=== PATIENT | male | born 1940 | race Caucasian/White ===

== ENCOUNTER → 2020-02-05 12:39 | Outpatient (BNVA) | payer MEDICARE, SELFPAY | PROVIDERS: PCP Internal Medicine; Referring Provider Internal Medicine; Visit Provider Nurse Practitioner Gerontology | DX: E11.42 Type 2 diabetes mellitus with diabetic polyneuropathy (principal); Z79.84 Long term (current) use of oral hypoglycemic drugs; I10 Essential (primary) hypertension; E78.5 Hyperlipidemia, unspecified | CPT/HCPCS: 99213; Q3014 ==

== ENCOUNTER 2020-02-26 10:29 | Outpatient (REF) | payer MEDICARE, SELFPAY ==
[2020-02-26 14:29] LABS: Alanine Aminotransferase 22 U/L (0-40); Albumin Level 4.4 g/dL (3.5-5.0); Alkaline Phosphatase 54 U/L (39-117); Anion Gap 14 (12-20); Aspartate Amino Transferase 17 U/L (5-37); Bilirubin Total 0.4 mg/dL (0.0-1.0); Blood Urea Nitrogen 16 mg/dL (9-16); Calcium 9.3 mg/dL (8.4-10.2); Carbon Dioxide 29 mmol/L (22-29); Chloride 97 mmol/L (96-108); Cholesterol 153 mg/dL; Estimated Glomerular Filt Rate > 60; Glucose Fasting 250 mg/dL (60-99); HDL Cholesterol 45 mg/dL; LDL Cholesterol Calculated 73 mg/dl; Potassium 4.7 mmol/l (3.3-5.1); Sodium 135 mmol/L (135-145); Total Protein 7.1 g/dL (6.5-8.0); Triglycerides 176 mg/dL
[2020-02-27 08:31] LABS: LDL Cholesterol Direct 85 mg/dL (<100)
== END 2020-02-26 10:30 | disposition home or self-care (01) ==
LOC: HO.HMGCLDS 10:29
PROVIDERS: PCP Internal Medicine; Visit Provider Nurse Practitioner Gerontology
DX: E11.42 Type 2 diabetes mellitus with diabetic polyneuropathy (principal)
CPT/HCPCS: 80053; 80061; 83721

== ENCOUNTER → 2020-03-08 12:59 | Outpatient (BNVA) | payer MEDICARE, OTHER, SELFPAY | PROVIDERS: PCP Internal Medicine; Visit Provider Nurse Practitioner Gerontology | DX: E11.42 Type 2 diabetes mellitus with diabetic polyneuropathy (principal); I10 Essential (primary) hypertension; E78.5 Hyperlipidemia, unspecified; Z79.899 Other long term (current) drug therapy | CPT/HCPCS: Q3014 ==

== ENCOUNTER 2020-03-25 13:28 | Outpatient (REF) | payer MEDICARE, SELFPAY ==
[2020-03-26 04:09] LABS: Estimated Average Glucose 192 mg/dL; Hemoglobin A1c % 8.3 %
== END 2020-03-25 13:29 | disposition home or self-care (01) ==
LOC: HO.HMGCLDS 13:28
PROVIDERS: PCP Internal Medicine; Visit Provider Nurse Practitioner Gerontology
DX: E11.42 Type 2 diabetes mellitus with diabetic polyneuropathy (principal)
CPT/HCPCS: 83036

== ENCOUNTER → 2020-04-19 09:24 | Outpatient (BNVA) | payer MEDICARE, OTHER, SELFPAY | PROVIDERS: PCP Internal Medicine; Visit Provider Nurse Practitioner Gerontology | DX: Z13.89 Encounter for screening for other disorder (principal) | CPT/HCPCS: Q3014 ==

== ENCOUNTER → 2020-07-19 09:10 | Outpatient (BNVA) | payer MEDICARE, SELFPAY | PROVIDERS: PCP Internal Medicine; Visit Provider Nurse Practitioner Gerontology | DX: Z13.89 Encounter for screening for other disorder (principal) | CPT/HCPCS: Q3014 ==

== ENCOUNTER → 2020-11-12 10:06 | Outpatient (BNVA) | payer MEDICARE, SELFPAY | PROVIDERS: PCP Internal Medicine; Visit Provider Nurse Practitioner Gerontology | DX: E11.42 Type 2 diabetes mellitus with diabetic polyneuropathy (principal); I10 Essential (primary) hypertension; E78.5 Hyperlipidemia, unspecified | CPT/HCPCS: 82947; 99212 ==

== ENCOUNTER 2020-11-23 13:42 | Outpatient (REF) | payer MEDICARE, SELFPAY ==
[2020-11-23 16:38] LABS: Hematocrit 31.9 % (42-52); Hemoglobin 10.8 g/dl (14.0-18.0)
[2020-11-23 16:41] LABS: Estimated Average Glucose 123 mg/dL; Hemoglobin A1c % 5.9 %
[2020-11-23 16:52] LABS: Alanine Aminotransferase 16 U/L (0-40); Alkaline Phosphatase 75 U/L (39-117); Anion Gap 14 (12-20); Aspartate Amino Transferase 18 U/L (5-37); Bilirubin Total 0.3 mg/dL (0.0-1.0); Blood Urea Nitrogen 24 mg/dL (9-16); Calcium 9.3 mg/dL (8.4-10.2); Carbon Dioxide 23 mmol/L (22-29); Chloride 94 mmol/L (96-108); Cholesterol 134 mg/dL; Estimated Glomerular Filt Rate > 60; Glucose Random 132 mg/dL (60-115); HDL Cholesterol 41 mg/dL; LDL Cholesterol Calculated 64 mg/dl; Potassium 5.4 mmol/L (3.3-5.1); Sodium 126 mmol/L (135-145); Total Protein 6.5 g/dL (6.5-8.0); Triglycerides 149 mg/dL
[2020-11-23 16:53] LABS: Alanine Aminotransferase 16 U/L (0-40); Alkaline Phosphatase 74 U/L (39-117); Anion Gap 14 (12-20); Aspartate Amino Transferase 18 U/L (5-37); Bilirubin Total 0.3 mg/dL (0.0-1.0); Blood Urea Nitrogen 23 mg/dL (9-16); Calcium 9.2 mg/dL (8.4-10.2); Carbon Dioxide 23 mmol/L (22-29); Chloride 94 mmol/L (96-108); Estimated Glomerular Filt Rate > 60; Glucose Random 130 mg/dL (60-115); Potassium 5.4 mmol/L (3.3-5.1); Sodium 126 mmol/L (135-145); Total Protein 6.5 g/dL (6.5-8.0)
[2020-11-23 17:15] LABS: Vitamin D 25-OH Total 54.8 ng/mL (>30)
[2020-11-23 17:59] LABS: Creatinine Urine 57.44 mg/dL; Microalbum/Creatinine Ratio Ur 10.4 ug/mg cr
== END 2020-11-23 13:43 | disposition home or self-care (01) ==
LOC: HO.HMGCLDS 13:42
PROVIDERS: PCP Internal Medicine; Visit Provider Nurse Practitioner Gerontology
DX: E03.8 Other specified hypothyroidism (principal); E11.42 Type 2 diabetes mellitus with diabetic polyneuropathy; E78.9 Disorder of lipoprotein metabolism, unspecified; I10 Essential (primary) hypertension
CPT/HCPCS: 36415; 80053; 80061; 82043; 82306; 83036; 84443; 85014; 85018

== ENCOUNTER 2020-11-30 10:04 | Outpatient (REF) | payer MEDICARE, SELFPAY ==
[2020-11-30 11:46] LABS: Estimated Average Glucose 123 mg/dL; Hemoglobin A1c % 5.9 %
[2020-11-30 11:48] LABS: B Type Natriuretic Peptide 33 pg/mL (<100)
[2020-11-30 12:13] LABS: Anion Gap 15 (12-20); Blood Urea Nitrogen 15 mg/dL (9-16); Carbon Dioxide 27 mmol/L (22-29); Chloride 92 mmol/L (96-108); Estimated Glomerular Filt Rate > 60; Potassium 5.7 mmol/L (3.3-5.1); Sodium 128 mmol/L (135-145)
== END 2020-11-30 10:05 | disposition home or self-care (01) ==
LOC: HO.HMGCLDS 10:04
PROVIDERS: Nurse Practitioner Gerontology; PCP Internal Medicine; Visit Provider Internal Medicine
DX: E11.42 Type 2 diabetes mellitus with diabetic polyneuropathy (principal); E87.5 Hyperkalemia; I10 Essential (primary) hypertension; E87.1 Hypo-osmolality and hyponatremia
CPT/HCPCS: 36415; 80051; 82565; 83036; 83880; 84520

== ENCOUNTER → 2020-12-06 14:09 | Outpatient (BNVA) | payer MEDICARE, SELFPAY | PROVIDERS: PCP Internal Medicine; Visit Provider Dietitian, Registered | DX: E11.42 Type 2 diabetes mellitus with diabetic polyneuropathy (principal); I10 Essential (primary) hypertension; E78.5 Hyperlipidemia, unspecified; E03.9 Hypothyroidism, unspecified; Z87.891 Personal history of nicotine dependence; Z91.040 Latex allergy status; Z79.84 Long term (current) use of oral hypoglycemic drugs; Z71.3 Dietary counseling and surveillance | CPT/HCPCS: 97802 ==

== ENCOUNTER 2021-03-01 11:17 | Outpatient (REF) | payer MEDICARE, SELFPAY ==
[2021-03-01 14:47] LABS: Alanine Aminotransferase 24 U/L (0-40); Albumin Level 4.2 g/dL (3.5-5.0); Alkaline Phosphatase 54 U/L (39-117); Anion Gap 13 (12-20); Aspartate Amino Transferase 16 U/L (5-37); Bilirubin Total 0.3 mg/dL (0.0-1.0); Blood Urea Nitrogen 16 mg/dL (9-16); Calcium 9.8 mg/dL (8.4-10.2); Carbon Dioxide 27 mmol/L (22-29); Chloride 100 mmol/L (96-108); Estimated Glomerular Filt Rate > 60; Glucose Random 137 mg/dL (60-115); Potassium 4.6 mmol/L (3.3-5.1); Sodium 135 mmol/L (135-145)
== END 2021-03-01 11:18 | disposition home or self-care (01) ==
LOC: HO.HMGCLDS 11:17
PROVIDERS: PCP Internal Medicine; Visit Provider Internal Medicine
DX: E11.42 Type 2 diabetes mellitus with diabetic polyneuropathy (principal); E78.9 Disorder of lipoprotein metabolism, unspecified; I10 Essential (primary) hypertension
CPT/HCPCS: 36415; 80053

== ENCOUNTER → 2021-04-01 09:39 | Outpatient (BNVA) | payer MEDICARE, SELFPAY | PROVIDERS: PCP Internal Medicine; Visit Provider Nurse Practitioner Gerontology | DX: E11.42 Type 2 diabetes mellitus with diabetic polyneuropathy (principal); I10 Essential (primary) hypertension; E78.5 Hyperlipidemia, unspecified | CPT/HCPCS: 82947; 83036; Q3014 ==

== ENCOUNTER → 2021-06-06 13:41 | Outpatient (BNVA) | payer OTHER, SELFPAY | PROVIDERS: PCP Internal Medicine; Visit Provider Dietitian, Registered | DX: E11.42 Type 2 diabetes mellitus with diabetic polyneuropathy (principal) | CPT/HCPCS: 97803 ==

== ENCOUNTER → 2021-06-21 09:58 | Outpatient (BNVA) | payer OTHER, SELFPAY | PROVIDERS: PCP Internal Medicine; Visit Provider Registered Nurse Diabetes Educator ==

== ENCOUNTER 2021-07-06 09:42 | Outpatient (REF) | payer MEDICARE, SELFPAY ==
[2021-07-06 13:56] LABS: Basophils Percent Auto 0.2 % (0-2); Eosinophils Absolute Auto 0.1 X10*3/uL (0.0-0.4); Eosinophils Percent Auto 0.9 % (0-4); Hematocrit 38.8 % (42.0-52.0); Hemoglobin 12.8 g/dl (14.0-18.0); Imm Gran Abs Auto 0.02 X10*3/uL (0.00-0.03); Imm Gran Pct Auto 0.4 % (0.0-0.4); Lymphocytes Absolute Auto 1.3 X10*3/uL (1.2-4.9); Lymphocytes Percent Auto 23.7 % (20-40); MANUAL DIFF FLAG NO; Mean Corpuscular Hemoglobin 30.8 pg (27.0-33.0); Mean Corpuscular Volume 93.3 fL (80.0-98.0); Mean Platelet Volume 9.6 fL (9.4-12.4); Monocytes Absolute Auto 0.4 X10*3/uL (0.1-1.2); Monocytes Percent Auto 6.8 % (2-11); Neutrophils Absolute Auto 3.6 x10*3/uL (2.0-8.3); Platelet Count 243 X10*3/uL (160-400); Red Blood Count 4.16 X10*6/uL (4.60-5.80); Red Cell Distribution Width 12.3 % (11.0-16.0); White Blood Count 5.3 X10*3/uL (4.8-10.8)
[2021-07-06 14:45] LABS: Alanine Aminotransferase 17 U/L (0-40); Albumin Level 4.3 g/dL (3.5-5.0); Alkaline Phosphatase 57 U/L (39-117); Anion Gap 13 (12-20); Aspartate Amino Transferase 12 U/L (5-37); Bilirubin Total 0.2 mg/dL (0.0-1.0); Blood Urea Nitrogen 19 mg/dL (9-16); Calcium 10.3 mg/dL (8.4-10.2); Carbon Dioxide 27 mmol/L (22-29); Chloride 97 mmol/L (96-108); Estimated Glomerular Filt Rate > 60; Glucose Random 226 mg/dL (60-115); Potassium 4.9 mmol/L (3.3-5.1); Sodium 132 mmol/L (135-145)
[2021-07-06 15:04] LABS: TSH reflex Free T4 1.77 uIU/mL (0.32-4.0)
== END 2021-07-06 09:43 | disposition home or self-care (01) ==
LOC: HO.10HDL 09:42
PROVIDERS: PCP Internal Medicine; Visit Provider Nurse Practitioner Gerontology
DX: Z00.01 Encounter for general adult medical examination with abnormal findings (principal); E11.42 Type 2 diabetes mellitus with diabetic polyneuropathy; I10 Essential (primary) hypertension; E78.5 Hyperlipidemia, unspecified; E78.9 Disorder of lipoprotein metabolism, unspecified; E03.8 Other specified hypothyroidism
CPT/HCPCS: 36415; 80053; 82947; 83036; 84443; 85025

== ENCOUNTER 2021-10-26 12:55 | Outpatient (REF) | payer MEDICARE, SELFPAY ==
[2021-10-26 14:14] LABS: Estimated Average Glucose 143 mg/dL; Hemoglobin A1c % 6.6 %
[2021-10-26 14:32] LABS: Alanine Aminotransferase 20 U/L (0-40); Albumin Level 4.6 g/dL (3.5-5.0); Alkaline Phosphatase 63 U/L (39-117); Aspartate Amino Transferase 13 U/L (5-37); Bilirubin Total 0.3 mg/dL (0.0-1.0); Blood Urea Nitrogen 20 mg/dL (9-16); Calcium 10.1 mg/dL (8.4-10.2); Estimated Glomerular Filt Rate > 60; Glucose Random 107 mg/dL (60-115); Total Protein 7.4 g/dL (6.5-8.0)
[2021-10-26 14:48] LABS: Anion Gap 13 (12-20); Carbon Dioxide 27 mmol/L (22-29); Chloride 96 mmol/L (96-108); Potassium 4.8 mmol/L (3.3-5.1); Sodium 131 mmol/L (135-145)
== END 2021-10-26 12:56 | disposition home or self-care (01) ==
LOC: HO.HMGCLDS 12:55
PROVIDERS: PCP Internal Medicine; Visit Provider Internal Medicine
DX: E11.42 Type 2 diabetes mellitus with diabetic polyneuropathy (principal); I10 Essential (primary) hypertension; E03.8 Other specified hypothyroidism; E78.9 Disorder of lipoprotein metabolism, unspecified
CPT/HCPCS: 36415; 80053; 83036; 84443

== ENCOUNTER 2022-06-13 11:38 | Outpatient (REF) | payer MEDICARE, SELFPAY ==
[2022-06-13 14:22] LABS: MANUAL DIFF FLAG NO
[2022-06-13 14:26] LABS: Basophils Percent Auto 0.2 % (0-2); Eosinophils Absolute Auto 0.1 X10*3/uL (0.0-0.4); Eosinophils Percent Auto 1.1 % (0-4); Hematocrit 36.3 % (42.0-52.0); Hemoglobin 12.1 g/dl (14.0-18.0); Imm Gran Abs Auto 0.02 X10*3/uL (0.00-0.03); Imm Gran Pct Auto 0.4 % (0.0-0.4); Lymphocytes Absolute Auto 1.5 X10*3/uL (1.2-4.9); Lymphocytes Percent Auto 27.2 % (20-40); Mean Corpuscular HGB Conc 33.3 g/dl (31.0-36.0); Mean Corpuscular Hemoglobin 30.9 pg (27.0-33.0); Mean Corpuscular Volume 92.8 fL (80.0-98.0); Mean Platelet Volume 9.7 fL (9.4-12.4); Monocytes Absolute Auto 0.4 X10*3/uL (0.1-1.2); Monocytes Percent Auto 7.7 % (2-11); Neutrophils Absolute Auto 3.5 x10*3/uL (2.0-8.3); Neutrophils Percent Auto 63.4 % (45-73); Platelet Count 256 X10*3/uL (160-400); Red Blood Count 3.91 X10*6/uL (4.60-5.80); White Blood Count 5.6 X10*3/uL (4.8-10.8)
[2022-06-13 14:45] LABS: Alanine Aminotransferase 17 U/L (0-40); Albumin Level 4.1 g/dL (3.5-5.0); Alkaline Phosphatase 45 U/L (39-117); Anion Gap 11 (12-20); Aspartate Amino Transferase 15 U/L (5-37); Bilirubin Total 0.3 mg/dL (0.0-1.0); Blood Urea Nitrogen 13 mg/dL (9-16); Calcium 9.7 mg/dL (8.4-10.2); Carbon Dioxide 27 mmol/L (22-29); Chloride 101 mmol/L (96-108); Estimated Glomerular Filt Rate > 60; Glucose Random 120 mg/dL (60-115); Potassium 4.8 mmol/L (3.3-5.1); Sodium 134 mmol/L (135-145); Total Protein 6.4 g/dL (6.5-8.0)
[2022-06-13 14:48] LABS: Estimated Average Glucose 137 mg/dL; Hemoglobin A1c % 6.4 %
[2022-06-13 15:00] LABS: Creatinine Urine 91.73 mg/dL; Microalbum/Creatinine Ratio Ur 6.5 ug/mg cr
[2022-06-13 15:03] LABS: TSH reflex Free T4 3.12 uIU/mL (0.32-4.0)
[2022-06-14 11:04] LABS: LDL Cholesterol Direct 77 mg/dL (<100)
== END 2022-06-13 11:39 | disposition home or self-care (01) ==
LOC: HO.HMGCLDS 11:38
PROVIDERS: PCP Internal Medicine; Visit Provider Internal Medicine
DX: E03.8 Other specified hypothyroidism (principal); E11.42 Type 2 diabetes mellitus with diabetic polyneuropathy; E87.1 Hypo-osmolality and hyponatremia; I10 Essential (primary) hypertension; E78.9 Disorder of lipoprotein metabolism, unspecified
CPT/HCPCS: 36415; 80053; 82043; 83036; 83721; 84443; 85025

== ENCOUNTER 2022-11-24 09:13 | Outpatient (AMB) | payer MEDICARE, SELFPAY ==
--- NOTE | 2022-11-24 09:15 | A.OFFPC_ITS ---
Vital Signs 11/24/22 09:20 Height 5 ft 10.5 in Weight 177 lb 2 oz BMI 25.1 BP 126/46 L Blood Pressure Location Lt brachial Position Sitting Pulse 74 Pulse Source Pulse Oximeter Pulse Oximetry (%) 96 Oxygen Delivery Method Room Air Intake Visit Reasons: 4M Follow up Allergies bandages/plastic Allergy (Intermediate, Uncoded 07/06/21 10:03) rash TAPE,PLASTIC Allergy (Intermediate, Uncoded 07/06/21 10:03) RASH Medication List - Last Reconciled 11/24/22 by Chase Disla MD aspirin (Adult Low Dose Aspirin) 81 mg PO DAILY blood sugar diagnostic ([employer] Verio test strips) As directed three times a day blood-glucose meter ([employer] Verio Flex Start kit) As directed finasteride 5 mg PO DAILY glimepiride 1 pill before breakfast, 1/2 pill before dinner PO 2 times a day; 90 days labetalol 100 mg PO BID 90 days lancets ([employer] Delica Lancets) As directed three times a day levothyroxine 50 mcg PO QAM lisinopril 5 mg PO DAILY 90 days metformin 1,000 mg PO BID naproxen sodium (Aleve) 220 mg PO Q12H pravastatin 40 mg PO BEDTIME 90 days [wheel chair As directed] Tobacco use date assessed: 11/24/22 Fall risk assessment: No Falls in past year Last assessed Fall Risk: 11/24/22 Dental Screening Dental Screen Date: 11/24/22 Did you have a dental visit in the last 12 months?: No Did you have a dental problem in the last 6 months where you did not have access to dental care?: No Was dental information given to patient?: No HPI 4M Follow up HPI Details Patient is 82-year-old gentleman came in today for regular follow-up Offers no complain taking all his medications Patient is walker dependent his gait is unstable, he is here today with his Son Diabetes mellitus: he is on metformin and glimepiride and is due for labs He was seeing Endocrinology but now diabetes is managed through this office Patient is also taking finasteride through Dr. [facility] and is doing well. His other medications are pravastatin 40 mg for cholesterol, labetalol 100 mg and lisinopril 5 mg for blood pressure control Blood pressure is stable patient is tolerating medications He lives alone and is able to manage Follow-up 4 months [facility] Medical History Actinic keratosis Anemia Basal cell carcinoma Carotid bruit Essential hypertension Hyperlipidemia LDL goal <100 Hyponatremia Hypothyroidism Lipid disorder Other specified hypothyroidism Polyuria Type 2 diabetes mellitus with polyneuropathy Surgical History Hx of basal cell carcinoma Hx of cataract Hx of cholecystectomy Hx of colonoscopy Hx of tooth extraction Family History Father No problems noted. Mother Diabetes Obesities, morbid Paternal Grandmother Diabetes Social History Household Members: None Housing: Apartment Patient Tobacco Use Status: Former Tobacco user (43 years ago ) e-Cigarette/Vaping Use: Never Used service: No Current occupational status: retired Cognitive needs: No Hearing needs: No Vision needs: Yes Questionnaire PHQ-9 Over the last 2 weeks, how often have you been bothered by any of the following problems? 1. Little interest or pleasure in doing things: not at all 2. Feeling down, depressed, or hopeless: not at all 3. Trouble falling or staying asleep, or sleeping too much: not at all 4. Feeling tired or having little energy: not at all 5. Poor appetite or overeating: not at all 6. Feeling bad about yourself - or that you are a failure or have let yourself or your family down: not at all 7. Trouble concentrating on things, such as reading the newspaper or watching television: not at all 8. Moving or speaking so slowly that other people could have noticed. Or the opposite - being so fidgety or restless that you have been moving around a lot more than usual: not at all 9. Thoughts that you would be better off or of hurting yourself in some way: not at all Total score: 0 Depression Screening Interpretation: Negative 85144 - PHQ-9 Billing: Yes Source: Developed by Drs. Louis Ferguson, Sera Bush, Ramesh Vera and colleagues, with an educational jarek from [employer]. Thrive Questionnaire Date Thrive assessed: 11/24/22 I am a: Patient What is your living situation today?: I have a steady place to live Within the past 12 months, did the food you bought not last and you didn't have the money to get more?: Never true Within the past 12 months, did you worry whether your food would run out before you got money to buy more?: Never true Do you have trouble paying for medicines?: No Do you have trouble getting transportation to medical appointments?: No Do you have trouble paying your heating and electricity bill?: No Do you have trouble taking care of your child, family member or friend?: No Do you have trouble with day-to-day activities such as bathing, preparing meals, shopping, managing finances, etc.?: No Are you currently unemployed and looking for a job?: No Are you interested in more education?: No AUDIT C Alcohol Use Questionnaire (AUDIT-C) 1. How often do you have a drink containing alcohol?: Never 3. How often do you have six or more drinks on one occasion?: Never Total Score: 0 Score Reviewed/Action Taken: Yes IFTIKHAR-7 AMB Questionnaire IFTIKHAR-7 Date IFTIKHAR - 7 assessed: 11/24/22 Feeling nervous, anxious, or on edge: 0 = Not at all Not being able to stop or control worryin = Not at all Worrying too much about different things: 0 = Not at all Trouble relaxin = Several days Being so restless that it is hard to sit still: 0 = Not at all Becoming easily annoyed or irritable: 0 = Not at all Feeling afraid as if something awful might happen: 0 = Not at all Total IFTIKHAR-7 score (0-4 normal; 5-9 mild; 10-14 moderate; 15-21 severe): 1 Source: Developed by Drs. Louis Ferguson, Sera Bush, Ramesh Vera and colleagues, with an educational jarek from [employer]. IFTIKHAR-7 Assessment Billing IFTIKHAR-7 Assessment Tool: IFTIKHAR-7 Assessment [id number] Review of Systems Const Denies chills, Denies fever(s) and Denies headache(s) ENT Denies headache(s), Denies nasal discharge, Denies nasal obstruction, Denies odynophagia and Denies sinus pain Card Denies chest pain at rest and Denies chest pain with activity Resp Denies cough and Denies hemoptysis GI Denies diarrhea, Denies odynophagia, Denies vomiting and Denies hematemesis Reports as per HPI Skin/Breast Reports as per HPI Neuro Denies Neuro-related abnormal movements, Denies Abnormal speech present and Denies headache(s) Psych Denies mood swings and Denies paranoia Endo Reports as per HPI Minor/Lymph Reports as per HPI Aller/Immun Reports as per HPI Physical exam (Primary Care) Vital Signs: Last Vital Signs Pulse 74 11/24/22 09:20 BP 126/46 L 11/24/22 09:20 Pulse Ox 96 11/24/22 09:20 Oxygen Delivery Method Room Air 11/24/22 09:20 BMI result Body Mass Index 25.1 Tobacco/Smoking Status: Tobacco use Status Tobacco use date assessed 11/24/22 11/24/22 09:17 Patient Tobacco Use Status Former Tobacco user (43 11/24/22 09:17 years ago ) e-Cigarette/Vaping Use Never Used 11/24/22 09:17 PHQ-9: PHQ-9 Score PHQ-9: Total score 0 11/24/22 09:37 Depression Screening Interpretation: Negative Thrive Assessment: Date of Thrive Assessment Date Thrive assessed 11/24/22 11/24/22 09:37 Const General: cooperative, comfortable and no acute distress Orientation/consciousness: patient oriented x3 HENMT Head: Yes normocephalic Eyes General: appearance normal, both eyes and all related structures Neck Neck: Yes supple Resp Effort & Inspection: normal respiratory effort, no cough and no stridor Cardio Rhythm: regular rhythm Heart sounds: S1 normal heart sound present and S2 normal heart sound present Skin General skin exam: turgor normal Neuro Other: Walks with the help of walker General: patient oriented x3, tone normal and moves all extremities Speech: No Abnormal speech present Extrem Other: 1+ pitting edema which is baseline for the patient Assessment and Plan Assessment & Plan (1) Essential hypertension: Code(s): I10 - Essential (primary) hypertension (2) Type 2 diabetes mellitus with polyneuropathy: Code(s): E11.42 - Type 2 diabetes mellitus with diabetic polyneuropathy (3) Other specified hypothyroidism: Code(s): E03.8 - Other specified hypothyroidism (4) Lipid disorder: Code(s): E78.9 - Disorder of lipoprotein metabolism, unspecified (5) Dependent on walker for ambulation: Code(s): Z99.89 - Dependence on other enabling machines and devices (6) Unsteady gait: Code(s): R26.81 - Unsteadiness on feet Plan Patient is 82-year-old gentleman came in today for regular follow-up Offers no complain taking all his medications Patient is walker dependent his gait is unstable, he is here today with his Son Diabetes mellitus: he is on metformin and glimepiride and is due for labs He was seeing Endocrinology but now diabetes is managed through this office Patient is also taking finasteride through Dr. [facility] and is doing well. His other medications are pravastatin 40 mg for cholesterol, labetalol 100 mg and lisinopril 5 mg for blood pressure control Blood pressure is stable patient is tolerating medications He lives alone and is able to manage Follow-up 4 months Orders: Orders Comprehensive Met. Panel Today E03.8 - Other specified hypothyroidism, E11.42 - Type 2 diabetes mellitus with diabetic polyneuropathy, E78.9 - Disorder of lipoprotein metabolism, unspecified, I10 - Essential (primary) hypertension Hemoglobin A1c Today E03.8 - Other specified hypothyroidism, E11.42 - Type 2 diabetes mellitus with diabetic polyneuropathy, E78.9 - Disorder of lipoprotein metabolism, unspecified, I10 - Essential (primary) hypertension Complete Blood Count Auto Diff Today E03.8 - Other specified hypothyroidism, E11.42 - Type 2 diabetes mellitus with diabetic polyneuropathy, E78.9 - Disorder of lipoprotein metabolism, unspecified, I10 - Essential (primary) hypertension TSH reflex Free T4 Today E03.8 - Other specified hypothyroidism Coding Level of Care Code Est Pt Level 4 (17922) Diagnoses Essential hypertension I10 Type 2 diabetes mellitus with polyneuropathy E11.42 Other specified hypothyroidism E03.8 Lipid disorder E78.9 Dependent on walker for ambulation Z99.89 Unsteady gait R26.81 Additional Codes IFTIKHAR-7 Assessment Billing - IFTIKHAR-7 Assessment Tool: IFTIKHAR-7 Assessment 25980 ([id number])
[2022-11-24 09:20] VITALS: BP 126/46; PULSE 74; O2SAT 96; BMI 25.1
== END 2022-11-24 10:27 | disposition home or self-care (01) ==
PROVIDERS: PCP Internal Medicine; Visit Provider Internal Medicine
DX: I10 Essential (primary) hypertension (principal); E11.42 Type 2 diabetes mellitus with diabetic polyneuropathy; E03.8 Other specified hypothyroidism; E78.9 Disorder of lipoprotein metabolism, unspecified; Z99.89 Dependence on other enabling machines and devices; R26.81 Unsteadiness on feet
CPT/HCPCS: 99214

== ENCOUNTER 2022-11-24 09:36 | Outpatient (REF) | payer MEDICARE, SELFPAY ==
[2022-11-24 11:17] LABS: MANUAL DIFF FLAG NO
[2022-11-24 11:44] LABS: Basophils Percent Auto 0.3 % (0-2); Eosinophils Absolute Auto 0.1 X10*3/uL (0.0-0.4); Eosinophils Percent Auto 2.3 % (0-4); Hematocrit 35.2 % (42.0-52.0); Hemoglobin 11.3 g/dl (14.0-18.0); Imm Gran Abs Auto 0.02 X10*3/uL (0.00-0.03); Imm Gran Pct Auto 0.3 % (0.0-0.4); Lymphocytes Absolute Auto 1.4 X10*3/uL (1.2-4.9); Lymphocytes Percent Auto 24.4 % (20-40); Mean Corpuscular HGB Conc 32.1 g/dl (31.0-36.0); Mean Corpuscular Hemoglobin 29.7 pg (27.0-33.0); Mean Corpuscular Volume 92.4 fL (80.0-98.0); Mean Platelet Volume 9.5 fL (9.4-12.4); Monocytes Absolute Auto 0.5 X10*3/uL (0.1-1.2); Monocytes Percent Auto 7.8 % (2-11); Neutrophils Absolute Auto 3.7 x10*3/uL (2.0-8.3); Neutrophils Percent Auto 64.9 % (45-73); Platelet Count 271 X10*3/uL (160-400); Red Blood Count 3.81 X10*6/uL (4.60-5.80); Red Cell Distribution Width 13.1 % (11.0-16.0); White Blood Count 5.7 X10*3/uL (4.8-10.8)
[2022-11-24 13:39] LABS: Estimated Average Glucose 146 mg/dL; Hemoglobin A1C 149.1167 umol/L; Hemoglobin A1c % 6.7 %
[2022-11-24 15:19] LABS: Alanine Aminotransferase 14 U/L (0-40); Alkaline Phosphatase 58 U/L (39-117); Anion Gap 20 (12-20); Aspartate Amino Transferase 13 U/L (5-37); Bilirubin Total 0.3 mg/dL (0.0-1.0); Blood Urea Nitrogen 16 mg/dL (9-16); Calcium 10.3 mg/dL (8.4-10.2); Carbon Dioxide 22 mmol/L (22-29); Chloride 98 mmol/L (96-108); Estimated Glomerular Filt Rate > 60; Glucose Random 185 mg/dL (60-115); Potassium 4.7 mmol/L (3.3-5.1); Sodium 135 mmol/L (135-145); Total Protein 6.9 g/dL (6.5-8.0)
[2022-11-24 15:24] LABS: TSH reflex Free T4 2.89 uIU/mL (0.32-4.0)
== END 2022-11-24 09:37 | disposition home or self-care (01) ==
LOC: HO.HMGCLDS 09:36
PROVIDERS: PCP Internal Medicine; Visit Provider Internal Medicine
DX: I10 Essential (primary) hypertension (principal); E11.42 Type 2 diabetes mellitus with diabetic polyneuropathy; E03.8 Other specified hypothyroidism; E78.9 Disorder of lipoprotein metabolism, unspecified
CPT/HCPCS: 36415; 80053; 83036; 84443; 85025

== ENCOUNTER 2023-03-28 09:36 | Outpatient (AMB) | payer MEDICARE, SELFPAY ==
[2023-03-28 09:50] VITALS: BP 124/54; PULSE 74; O2SAT 97; BMI 24.4
--- NOTE | 2023-03-28 09:50 | MHC.PC.OV ---
Vital Signs 03/28/23 09:50 Height 5 ft 10.5 in Weight 172 lb 8 oz BMI 24.4 BP 124/54 L Blood Pressure Location Lt brachial Position Sitting Pulse 74 Pulse Source Pulse Oximeter Pulse Oximetry (%) 97 Oxygen Delivery Method Room Air Intake Visit Reasons: 4 Month follow up Allergies bandages/plastic Allergy (Intermediate, Uncoded 07/06/21 10:03) rash TAPE,PLASTIC Allergy (Intermediate, Uncoded 07/06/21 10:03) RASH Medication List - Last Reconciled 03/28/23 by Chase Disla MD aspirin (Adult Low Dose Aspirin) 81 mg PO DAILY blood sugar diagnostic ([employer] Verio test strips) As directed three times a day blood-glucose meter ([employer] Verio Flex Start kit) As directed finasteride 5 mg PO DAILY glimepiride 1 pill before breakfast, 1/2 pill before dinner PO 2 times a day; 90 days labetalol 100 mg PO BID 90 days lancets ([employer] Delica Lancets) As directed three times a day levothyroxine 50 mcg PO QAM lisinopril 5 mg PO DAILY 90 days metformin 1,000 mg PO BID naproxen sodium (Aleve) 220 mg PO Q12H pravastatin 40 mg PO BEDTIME 90 days [wheel chair As directed] Tobacco use date assessed: 03/28/23 Fall risk assessment: No Falls in past year Last assessed Fall Risk: 03/28/23 Dental Screening Dental Screen Date: 03/28/23 Did you have a dental visit in the last 12 months?: No Did you have a dental problem in the last 6 months where you did not have access to dental care?: No Was dental information given to patient?: No HPI 4 Month follow up HPI Details Patient is 82-year-old gentleman came in today for regular follow-up with his daughter Offers no complain taking all his medications Patient is walker dependent his gait is unstable, he is here today with his Son Diabetes mellitus: he is on metformin and glimepiride and is due for labs Patient has seen Endocrinology in the past but now management is through PCP office Patient is also taking finasteride through Dr. [facility] and is doing well. His other medications are pravastatin 40 mg for cholesterol, labetalol 100 mg and lisinopril 5 mg for blood pressure control Blood pressure is stable patient is tolerating medications He lives alone and is able to manage He is slightly anemic but stable Patient has appointment in June [facility] Medical History Lipid disorder Other specified hypothyroidism Carotid bruit Actinic keratosis Hypothyroidism Basal cell carcinoma Hyponatremia Anemia Polyuria Hyperlipidemia LDL goal <100 Essential hypertension Type 2 diabetes mellitus with polyneuropathy Surgical History Hx of tooth extraction Hx of basal cell carcinoma Hx of cataract Hx of cholecystectomy Hx of colonoscopy Family History Father No problems noted. Mother Diabetes Obesities, morbid Paternal Grandmother Diabetes Social History Household Members: None Housing: Apartment Patient Tobacco Use Status: Former Tobacco user (43 years ago ) e-Cigarette/Vaping Use: Never Used service: No Current occupational status: retired Cognitive needs: No Hearing needs: No Vision needs: Yes Questionnaire PHQ-9 Over the last 2 weeks, how often have you been bothered by any of the following problems? Depression Screening Interpretation: Negative Depression Screening Done: Yes Source: Developed by Drs. Louis Ferguson, Ramesh Garcia and colleagues, with an educational jarek from [employer]. Thrive Questionnaire Date Thrive assessed: 11/24/22 AUDIT C Alcohol Use Questionnaire (AUDIT-C) 1. How often do you have a drink containing alcohol?: Never 3. How often do you have six or more drinks on one occasion?: Never Total Score: 0 Score Reviewed/Action Taken: Yes IFTIKHAR-7 AMB Questionnaire IFTIKHAR-7 Date IFTIKHAR - 7 assessed: 11/24/22 Source: Developed by Drs. Louis Ferguson, Ramesh Garcia and colleagues, with an educational jarek from [employer]. Review of Systems Const Denies chills, Denies fever(s) and Denies headache(s) ENT Denies headache(s), Denies nasal discharge, Denies nasal obstruction, Denies odynophagia and Denies sinus pain Card Denies chest pain at rest and Denies chest pain with activity Resp Denies cough and Denies hemoptysis GI Denies diarrhea, Denies odynophagia, Denies vomiting and Denies hematemesis Reports as per HPI Skin/Breast Reports as per HPI Neuro Denies Neuro-related abnormal movements, Denies Abnormal speech present and Denies headache(s) Psych Denies mood swings and Denies paranoia Endo Reports as per HPI Minor/Lymph Reports as per HPI Aller/Immun Reports as per HPI Physical exam (Primary Care) Vital Signs: Last Vital Signs Pulse 74 03/28/23 09:50 BP 124/54 L 03/28/23 09:50 Pulse Ox 97 03/28/23 09:50 Oxygen Delivery Method Room Air 03/28/23 09:50 BMI result Body Mass Index 24.4 Tobacco/Smoking Status: Tobacco use Status Tobacco use date assessed 03/28/23 03/28/23 09:54 Patient Tobacco Use Status Former Tobacco user (43 03/28/23 09:54 years ago ) e-Cigarette/Vaping Use Never Used 03/28/23 09:54 Depression Screening Interpretation: Negative Thrive Assessment: Date of Thrive Assessment Date Thrive assessed 11/24/22 03/28/23 09:54 Const General: cooperative, comfortable and no acute distress Orientation/consciousness: patient oriented x3 HENMT Head: Yes normocephalic Eyes General: appearance normal, both eyes and all related structures Neck Neck: Yes supple Resp Effort & Inspection: normal respiratory effort, no cough and no stridor Cardio Rhythm: regular rhythm Heart sounds: S1 normal heart sound present and S2 normal heart sound present Skin General skin exam: turgor normal Neuro Other: Walks with the help of walker General: patient oriented x3, tone normal and moves all extremities Speech: No Abnormal speech present Extrem Other: Minimal pitting edema which is baseline for the patient Assessment and Plan Assessment & Plan (1) Type 2 diabetes mellitus with polyneuropathy: Code(s): E11.42 - Type 2 diabetes mellitus with diabetic polyneuropathy (2) Essential hypertension: Code(s): I10 - Essential (primary) hypertension (3) Other specified hypothyroidism: Code(s): E03.8 - Other specified hypothyroidism (4) Lipid disorder: Code(s): E78.9 - Disorder of lipoprotein metabolism, unspecified (5) Unsteady gait: Code(s): R26.81 - Unsteadiness on feet (6) Dependent on walker for ambulation: Code(s): Z99.89 - Dependence on other enabling machines and devices Plan Patient is 82-year-old gentleman came in today for regular follow-up with his daughter Offers no complain taking all his medications Patient is walker dependent his gait is unstable, he is here today with his Son Diabetes mellitus: he is on metformin and glimepiride and is due for labs Patient has seen Endocrinology in the past but now management is through PCP office Patient is also taking finasteride through Dr. [facility] and is doing well. His other medications are pravastatin 40 mg for cholesterol, labetalol 100 mg and lisinopril 5 mg for blood pressure control Blood pressure is stable patient is tolerating medications He lives alone and is able to manage He is slightly anemic but stable Patient has appointment in June Orders: Orders Complete Blood Count Auto Diff Today E03.8 - Other specified hypothyroidism, E11.42 - Type 2 diabetes mellitus with diabetic polyneuropathy, E78.9 - Disorder of lipoprotein metabolism, unspecified, I10 - Essential (primary) hypertension, R26.81 - Unsteadiness on feet TSH reflex Free T4 Today E03.8 - Other specified hypothyroidism, E11.42 - Type 2 diabetes mellitus with diabetic polyneuropathy, E78.9 - Disorder of lipoprotein metabolism, unspecified, I10 - Essential (primary) hypertension, R26.81 - Unsteadiness on feet Microalbumin, Random (w Creat) Today E03.8 - Other specified hypothyroidism, E11.42 - Type 2 diabetes mellitus with diabetic polyneuropathy, E78.9 - Disorder of lipoprotein metabolism, unspecified, I10 - Essential (primary) hypertension, R26.81 - Unsteadiness on feet Hemoglobin A1c Today E03.8 - Other specified hypothyroidism, E11.42 - Type 2 diabetes mellitus with diabetic polyneuropathy, E78.9 - Disorder of lipoprotein metabolism, unspecified, I10 - Essential (primary) hypertension, R26.81 - Unsteadiness on feet Comprehensive Met. Panel Today E03.8 - Other specified hypothyroidism, E11.42 - Type 2 diabetes mellitus with diabetic polyneuropathy, E78.9 - Disorder of lipoprotein metabolism, unspecified, I10 - Essential (primary) hypertension, R26.81 - Unsteadiness on feet Coding Level of Care Code Est Pt Level 4 (34717) Diagnoses Type 2 diabetes mellitus with polyneuropathy E11.42 Essential hypertension I10 Other specified hypothyroidism E03.8 Lipid disorder E78.9 Unsteady gait R26.81 Dependent on walker for ambulation Z99.89
== END 2023-03-28 13:21 | disposition home or self-care (01) ==
LOC: HO.HMGC 09:36
PROVIDERS: PCP Internal Medicine; Visit Provider Internal Medicine
DX: E11.42 Type 2 diabetes mellitus with diabetic polyneuropathy (principal); I10 Essential (primary) hypertension; E03.8 Other specified hypothyroidism; E78.9 Disorder of lipoprotein metabolism, unspecified; R26.81 Unsteadiness on feet; Z99.89 Dependence on other enabling machines and devices
CPT/HCPCS: 99214

== ENCOUNTER 2023-03-28 10:03 | Outpatient (REF) | payer MEDICARE, SELFPAY ==
[2023-03-28 13:20] LABS: MANUAL DIFF FLAG NO
[2023-03-28 13:41] LABS: Basophils Percent Auto 0.5 % (0-2); Eosinophils Absolute Auto 0.3 X10*3/uL (0.0-0.4); Eosinophils Percent Auto 4.2 % (0-4); Hematocrit 32.6 % (42.0-52.0); Hemoglobin 10.5 g/dl (14.0-18.0); Imm Gran Abs Auto 0.03 X10*3/uL (0.00-0.03); Imm Gran Pct Auto 0.4 % (0.0-0.4); Lymphocytes Absolute Auto 1.3 X10*3/uL (1.2-4.9); Lymphocytes Percent Auto 16.3 % (20-40); Mean Corpuscular HGB Conc 32.2 g/dl (31.0-36.0); Mean Corpuscular Hemoglobin 29.4 pg (27.0-33.0); Mean Corpuscular Volume 91.3 fL (80.0-98.0); Mean Platelet Volume 9.2 fL (9.4-12.4); Monocytes Absolute Auto 0.6 X10*3/uL (0.1-1.2); Monocytes Percent Auto 7.1 % (2-11); Neutrophils Absolute Auto 5.8 x10*3/uL (2.0-8.3); Neutrophils Percent Auto 71.5 % (45-73); Platelet Count 342 X10*3/uL (160-400); Red Blood Count 3.57 X10*6/uL (4.60-5.80); Red Cell Distribution Width 13.2 % (11.0-16.0); White Blood Count 8.1 X10*3/uL (4.8-10.8)
[2023-03-28 13:42] LABS: Estimated Average Glucose 146 mg/dL; Hemoglobin A1c % 6.7 % (<6.0)
[2023-03-28 13:56] LABS: Alanine Aminotransferase 13 U/L (0-40); Albumin Level 3.9 g/dL (3.5-5.0); Alkaline Phosphatase 62 U/L (39-117); Anion Gap 14 (12-20); Aspartate Amino Transferase 14 U/L (5-37); Bilirubin Total 0.3 mg/dL (0.0-1.0); Blood Urea Nitrogen 18 mg/dL (9-16); Calcium 9.9 mg/dL (8.4-10.2); Carbon Dioxide 26 mmol/L (22-29); Chloride 99 mmol/L (96-108); Estimated Glomerular Filt Rate > 60; Glucose Random 129 mg/dL (60-115); Potassium 4.7 mmol/L (3.3-5.1); Sodium 134 mmol/L (135-145); Total Protein 6.9 g/dL (6.5-8.0)
[2023-03-28 14:03] LABS: Creatinine Urine 85.57 mg/dL; Microalbum/Creatinine Ratio Ur 8.1 ug/mg cr (<30)
== END 2023-03-28 10:04 | disposition home or self-care (01) ==
LOC: HO.HMGCLDS 10:03
PROVIDERS: PCP Internal Medicine; Visit Provider Internal Medicine
DX: E11.42 Type 2 diabetes mellitus with diabetic polyneuropathy (principal); I10 Essential (primary) hypertension; E03.8 Other specified hypothyroidism; E78.9 Disorder of lipoprotein metabolism, unspecified; R26.81 Unsteadiness on feet
CPT/HCPCS: 36415; 80053; 82043; 82570; 83036; 84443; 85025

== ENCOUNTER 2023-06-22 14:17 | Outpatient (AMB) | payer MEDICARE, SELFPAY ==
[2023-06-22 14:30] VITALS: BP 136/60; PULSE 81; O2SAT 97; BMI 24.8
--- NOTE | 2023-06-22 14:30 | A.OFFPC_ITS ---
Vital Signs 06/22/23 14:30 Height 5 ft 10.5 in Weight 175 lb BMI 24.8 BP 136/60 Blood Pressure Location Lt brachial Position Sitting Pulse 81 Pulse Source Pulse Oximeter Pulse Oximetry (%) 97 Oxygen Delivery Method Room Air Intake Visit Reasons: PE- medicare part c covers Allergies bandages/plastic Allergy (Intermediate, Uncoded 07/06/21 10:03) rash TAPE,PLASTIC Allergy (Intermediate, Uncoded 07/06/21 10:03) RASH Medication List - Last Reconciled 06/22/23 by Chase Disla MD aspirin (Adult Low Dose Aspirin) 81 mg PO DAILY blood sugar diagnostic ([employer] Verio test strips) As directed three times a day blood-glucose meter ([employer] Verio Flex Start kit) As directed finasteride 5 mg PO DAILY glimepiride 1 pill before breakfast, 1/2 pill before dinner PO 2 times a day; 90 days labetalol 100 mg PO BID 90 days lancets (PastBook Delica Lancets) As directed three times a day levothyroxine 50 mcg PO QAM lisinopril 5 mg PO DAILY 90 days metformin 1,000 mg PO BID naproxen sodium (Aleve) 220 mg PO Q12H pravastatin 40 mg PO BEDTIME 90 days [wheel chair As directed] Tobacco use date assessed: 06/22/23 Fall risk assessment: No Falls in past year Last assessed Fall Risk: 06/22/23 Dental Screening Dental Screen Date: 06/22/23 Did you have a dental visit in the last 12 months?: Yes Did you have a dental problem in the last 6 months where you did not have access to dental care?: No Was dental information given to patient?: Patient has dentist HPI PE- medicare part c covers 2 HPI Details Physical exam appointment Medication list reviewed Labs were done March New set of lab order placed to be done July Hemoglobin A1c is stable patient is tolerating medication no side effects Follow-up 4 [facility] Medical History Lipid disorder Other specified hypothyroidism Carotid bruit Actinic keratosis Hypothyroidism Basal cell carcinoma Hyponatremia Anemia Polyuria Hyperlipidemia LDL goal <100 Essential hypertension Type 2 diabetes mellitus with polyneuropathy Surgical History Hx of tooth extraction Hx of basal cell carcinoma Hx of cataract Hx of cholecystectomy Hx of colonoscopy Family History Father No problems noted. Mother Diabetes Obesities, morbid Paternal Grandmother Diabetes Social History Household Members: None Housing: Apartment Patient Tobacco Use Status: Former Tobacco user (43 years ago ) e-Cigarette/Vaping Use: Never Used service: No Current occupational status: retired Cognitive needs: No Hearing needs: No Vision needs: Yes Questionnaire PHQ-9 Over the last 2 weeks, how often have you been bothered by any of the following problems? 1. Little interest or pleasure in doing things: not at all 2. Feeling down, depressed, or hopeless: not at all 3. Trouble falling or staying asleep, or sleeping too much: not at all 4. Feeling tired or having little energy: not at all 5. Poor appetite or overeating: not at all 6. Feeling bad about yourself - or that you are a failure or have let yourself or your family down: not at all 7. Trouble concentrating on things, such as reading the newspaper or watching television: not at all 8. Moving or speaking so slowly that other people could have noticed. Or the opposite - being so fidgety or restless that you have been moving around a lot more than usual: not at all 9. Thoughts that you would be better off or of hurting yourself in some way: not at all Total score: 0 Depression Screening Interpretation: Negative Depression Screening Done: Yes [id number] - PHQ-9 Billing: Yes Source: Developed by Drs. Louis Ferguson, Sera Bush, Ramesh Vera and colleagues, with an educational jarek from [employer]. Thrive Questionnaire Date Thrive assessed: 06/22/23 I am a: Patient What is your living situation today?: I have a steady place to live Within the past 12 months, did the food you bought not last and you didn't have the money to get more?: Never true Within the past 12 months, did you worry whether your food would run out before you got money to buy more?: Never true Do you have trouble paying for medicines?: No Do you have trouble getting transportation to medical appointments?: No Do you have trouble paying your heating and electricity bill?: No Do you have trouble taking care of your child, family member or friend?: No Do you have trouble with day-to-day activities such as bathing, preparing meals, shopping, managing finances, etc.?: No Are you currently unemployed and looking for a job?: No Are you interested in more education?: No Please select the resources that you would like help with: None Currently or been in a relationship where the following occur: no concerns reported THRIVE Score: 0 AUDIT C Alcohol Use Questionnaire (AUDIT-C) 1. How often do you have a drink containing alcohol?: Never 3. How often do you have six or more drinks on one occasion?: Never Total Score: 0 Score Reviewed/Action Taken: Yes IFTIKHAR-7 AMB Questionnaire IFTIKHAR-7 Date IFTIKHAR - 7 assessed: 06/22/23 Feeling nervous, anxious, or on edge: 0 = Not at all Not being able to stop or control worryin = Not at all Worrying too much about different things: 0 = Not at all Trouble relaxin = Not at all Being so restless that it is hard to sit still: 0 = Not at all Becoming easily annoyed or irritable: 0 = Not at all Feeling afraid as if something awful might happen: 0 = Not at all Total IFTIKHAR-7 score (0-4 normal; 5-9 mild; 10-14 moderate; 15-21 severe): 0 Source: Developed by Drs. Louis Ferguson, Sera Bush, Ramesh eVra and colleagues, with an educational jarek from [employer]. IFTIKHAR-7 Assessment Billing IFTIKHAR-7 Assessment Tool: IFTIKHAR-7 Assessment 97350 Review of Systems Const Denies chills, Denies fever(s) and Denies headache(s) ENT Denies headache(s), Denies nasal discharge, Denies nasal obstruction, Denies odynophagia and Denies sinus pain Card Denies chest pain at rest and Denies chest pain with activity Resp Denies cough and Denies hemoptysis GI Denies diarrhea, Denies odynophagia, Denies vomiting and Denies hematemesis Reports as per HPI Skin/Breast Reports as per HPI Neuro Denies Neuro-related abnormal movements, Denies Abnormal speech present and Denies headache(s) Psych Denies mood swings and Denies paranoia Endo Reports as per HPI Minor/Lymph Reports as per HPI Aller/Immun Reports as per HPI Physical exam (Primary Care) Vital Signs: Last Vital Signs Pulse 81 06/22/23 14:30 BP 136/60 06/22/23 14:30 Pulse Ox 97 06/22/23 14:30 Oxygen Delivery Method Room Air 06/22/23 14:30 BMI result Body Mass Index 24.8 Tobacco/Smoking Status: Tobacco use Status Tobacco use date assessed 06/22/23 06/22/23 14:32 Patient Tobacco Use Status Former Tobacco user (43 06/22/23 14:32 years ago ) e-Cigarette/Vaping Use Never Used 06/22/23 14:32 PHQ-9: PHQ-9 Score PHQ-9: Total score 0 06/22/23 14:34 Depression Screening Interpretation: Negative Thrive Assessment: Date of Thrive Assessment Date Thrive assessed 06/22/23 06/22/23 14:34 Currently or been in a relationship where the following occur: no concerns repor edith Const Other: Patient is very unsteady on his feet, was not able to get on examination table General: cooperative, comfortable and no acute distress Orientation/consciousness: patient oriented x3 HENMT Head: Yes normocephalic and Yes atraumatic Eyes General: appearance normal, both eyes and all related structures Pupils: Equal, round and reactive pupils present EOM: EOMs intact bilaterally Neck Neck: Yes supple and No lymphadenopathy Thyroid: Thyroid normal Lymphatic: no lymphadenopathy noted Resp Effort & Inspection: normal respiratory effort and able to speak in complete sen tences Auscultation: clear to auscultation bilaterally Cardio Heart sounds: S1 normal heart sound present and S2 normal heart sound present GI Palpation (GI): Soft to palpation and nontender Auscultation: normal bowel sounds General: Yes no CVA tenderness Back/Spine/Pelvis Back: no CVA tenderness Skin General skin exam: elasticity normal and turgor normal Neuro Other: Unable to stand up without assistance, balance is off General: patient oriented x3 Cranial nerves: Yes Equal, round and reactive pupils present Speech: No Abnormal speech present Extrem Other: Right shoulder with very limited range of motion General: Yes normal exam except as noted and No edema Assessment and Plan Assessment & Plan (1) Encounter for general adult medical examination with abnormal findings: Code(s): Z00.01 - Encounter for general adult medical examination with abnormal findings (2) Lipid disorder: Code(s): E78.9 - Disorder of lipoprotein metabolism, unspecified (3) Other specified hypothyroidism: Code(s): E03.8 - Other specified hypothyroidism (4) Type 2 diabetes mellitus with polyneuropathy: Code(s): E11.42 - Type 2 diabetes mellitus with diabetic polyneuropathy (5) Essential hypertension: Code(s): I10 - Essential (primary) hypertension (6) Dependent on walker for ambulation: Code(s): Z99.89 - Dependence on other enabling machines and devices (7) Unsteady gait: Code(s): R26.81 - Unsteadiness on feet (8) Frozen shoulder: Code(s): M75.00 - Adhesive capsulitis of unspecified shoulder Qualifiers: Laterality: right Qualified Code(s): M75.01 - Adhesive capsulitis of right shoulder Plan Physical exam appointment Medication list reviewed Labs were done March New set of lab order placed to be done July Hemoglobin A1c is stable patient is tolerating medication no side effects Going to [place] for family reunion in September, very excited about that Follow-up 4 months Orders: Orders Microalbumin, Random (w Creat) Today E03.8 - Other specified hypothyroidism, E11.42 - Type 2 diabetes mellitus with diabetic polyneuropathy, E78.9 - Disorder of lipoprotein metabolism, unspecified, I10 - Essential (primary) hypertension, M75.00 - Adhesive capsulitis of unspecified shoulder, R26.81 - Unsteadiness on feet, Z00.01 - Encounter for general adult medical examination with abnormal findings, Z99.89 - Dependence on other enabling machines and devices Ferritin Today E03.8 - Other specified hypothyroidism, E11.42 - Type 2 diabetes mellitus with diabetic polyneuropathy, E78.9 - Disorder of lipoprotein metabolism, unspecified, I10 - Essential (primary) hypertension, M75.00 - Adhesive capsulitis of unspecified shoulder, R26.81 - Unsteadiness on feet, Z00.01 - Encounter for general adult medical examination with abnormal findings, Z99.89 - Dependence on other enabling machines and devices Vitamin B12 Today E03.8 - Other specified hypothyroidism, E11.42 - Type 2 diabetes mellitus with diabetic polyneuropathy, E78.9 - Disorder of lipoprotein metabolism, unspecified, I10 - Essential (primary) hypertension, M75.00 - Adhesive capsulitis of unspecified shoulder, R26.81 - Unsteadiness on feet, Z00.01 - Encounter for general adult medical examination with abnormal findings, Z99.89 - Dependence on other enabling machines and devices Vitamin D 25-OH (D2 and D3) Today E03.8 - Other specified hypothyroidism, E11.42 - Type 2 diabetes mellitus with diabetic polyneuropathy, E78.9 - Disorder of lipoprotein metabolism, unspecified, I10 - Essential (primary) hypertension, M75.00 - Adhesive capsulitis of unspecified shoulder, R26.81 - Unsteadiness on feet, Z00.01 - Encounter for general adult medical examination with abnormal findings, Z99.89 - Dependence on other enabling machines and devices Hemoglobin A1c Today E03.8 - Other specified hypothyroidism, E11.42 - Type 2 diabetes mellitus with diabetic polyneuropathy, E78.9 - Disorder of lipoprotein metabolism, unspecified, I10 - Essential (primary) hypertension, M75.00 - Adhesive capsulitis of unspecified shoulder, R26.81 - Unsteadiness on feet, Z00.01 - Encounter for general adult medical examination with abnormal findings, Z99.89 - Dependence on other enabling machines and devices Complete Blood Count Auto Diff Today E03.8 - Other specified hypothyroidism, E11.42 - Type 2 diabetes mellitus with diabetic polyneuropathy, E78.9 - Disorder of lipoprotein metabolism, unspecified, I10 - Essential (primary) hypertension, M75.00 - Adhesive capsulitis of unspecified shoulder, R26.81 - Unsteadiness on feet, Z00.01 - Encounter for general adult medical examination with abnormal findings, Z99.89 - Dependence on other enabling machines and devices Comprehensive Met. Panel Today E03.8 - Other specified hypothyroidism, E11.42 - Type 2 diabetes mellitus with diabetic polyneuropathy, E78.9 - Disorder of lipoprotein metabolism, unspecified, I10 - Essential (primary) hypertension, M75.00 - Adhesive capsulitis of unspecified shoulder, R26.81 - Unsteadiness on feet, Z00.01 - Encounter for general adult medical examination with abnormal findings, Z99.89 - Dependence on other enabling machines and devices LDL Cholesterol Direct Today E03.8 - Other specified hypothyroidism, E11.42 - Type 2 diabetes mellitus with diabetic polyneuropathy, E78.9 - Disorder of lipoprotein metabolism, unspecified, I10 - Essential (primary) hypertension, M75.00 - Adhesive capsulitis of unspecified shoulder, R26.81 - Unsteadiness on feet, Z00.01 - Encounter for general adult medical examination with abnormal findings, Z99.89 - Dependence on other enabling machines and devices IRON PROFILE Today E03.8 - Other specified hypothyroidism, E11.42 - Type 2 diabetes mellitus with diabetic polyneuropathy, E78.9 - Disorder of lipoprotein metabolism, unspecified, I10 - Essential (primary) hypertension, M75.00 - Adhesive capsulitis of unspecified shoulder, R26.81 - Unsteadiness on feet, Z00.01 - Encounter for general adult medical examination with abnormal findings, Z99.89 - Dependence on other enabling machines and devices Coding Level of Care Code Est Pt Prev Care >65y(22084) Diagnoses Encounter for general adult medical examination with abnormal findings Z00.01 Lipid disorder E78.9 Other specified hypothyroidism E03.8 Type 2 diabetes mellitus with polyneuropathy E11.42 Essential hypertension I10 Dependent on walker for ambulation Z99.89 Unsteady gait R26.81 Adhesive capsulitis of right shoulder M75.01 Laterality: right Additional Codes IFTIKHAR-7 Assessment Billing - IFTIKHAR-7 Assessment Tool: IFTIKHAR-7 Assessment [id number] ([id number])
== END 2023-06-22 14:49 | disposition home or self-care (01) ==
PROVIDERS: Visit Provider Internal Medicine
DX: Z00.00 Encounter for general adult medical examination without abnormal findings (principal); E78.9 Disorder of lipoprotein metabolism, unspecified; E03.8 Other specified hypothyroidism; E11.42 Type 2 diabetes mellitus with diabetic polyneuropathy; I10 Essential (primary) hypertension; Z99.89 Dependence on other enabling machines and devices; R26.81 Unsteadiness on feet; M75.01 Adhesive capsulitis of right shoulder
CPT/HCPCS: 99397

== ENCOUNTER 2024-05-05 03:40 | Inpatient (IN) | payer MEDICARE, SELFPAY ==
[2024-05-05] VITALS (16 sets, daily range): BP systolic 75–144; BP diastolic 33–68; PULSE 58–97; RESP 12–19; TEMP 36.3–38.5; O2SAT 88–100; BMI 29.0
--- NOTE | 2024-05-05 | ECG_ITS ---
Test Reason : HYPOTENSION Blood Pressure : */* mmHG Vent. Rate : 84 BPM Atrial Rate : 84 BPM P-R Int : 198 ms QRS Dur : 98 ms QT Int : 362 ms P-R-T Axes : 48 48 67 degrees QTcB Int : 427 ms Normal sinus rhythm Normal ECG When compared with ECG of 12-Jan-2015 12:49, No significant change was found Referred By: Generic ED Physician Electronically Signed By: Mayank Metz
--- NOTE | ~2024-05-05 | CT_ITS ---
EXAMINATION: CT ABDOMEN AND PELVIS WITH CONTRAST CLINICAL INFORMATION: Bacteremia. Normal urine culture COMPARISON: CT abdomen and pelvis 05/12/2018. Chest x-ray 05/05/2024. TECHNIQUE: Multidetector volumetric images were obtained from the superior aspect of the liver through the pubic symphysis following administration 85 mL of Omnipaque 350 intravenous contrast. Sagittal and coronal reformatted images were obtained on the technologist's workstation. Oral contrast: No. DLP: 586 mGy/cm. This CT examination was performed using dose optimization techniques as appropriate, variously including the following: *Automated exposure control *Adjustment of mA and/or kV according to patient size (this includes techniques or standardized protocols for targeted exams where dose is matched to indication/reason for exam; i.e. extremities or head) *Use of iterative reconstruction technique FINDINGS: LUNG BASES: There is bilateral pleural effusions with bibasilar atelectasis. Heart size is normal. There is mild to moderate coronary artery calcifications. No pericardial effusion seen. LIVER, GALLBLADDER, AND BILIARY TREE: The liver is normal in size, shape, and attenuation. No focal hepatic lesion or biliary ductal dilatation is present. The gallbladder has been surgically removed PANCREAS: Unremarkable. SPLEEN: Unremarkable. ADRENAL GLANDS: Unremarkable. KIDNEYS AND URETERS: The kidneys are normal in size, shape, and attenuation. No hydronephrosis, hydroureter, or calculi seen. No perinephric stranding. There are bilateral simple renal cysts. Largest cyst measuring 3.2 cm mid pole left kidney. BLADDER: There is a Kern's catheter in the bladder with mild bladder wall thickening. GASTROINTESTINAL TRACT: There is scattered stool and gas seen in colon without distention. The cecum is midline. Appendix is normal. The stomach is nondistended ABDOMINAL WALL: No significant hernia is appreciated. LYMPH NODES: Normal. VASCULAR: Mild sclerotic changes of abdominal aorta are noted without aneurysmal dilatation. PELVIC VISCERA: No free air or free fluid. No pelvic mass seen. Prominent bilateral inguinal canals containing fat is noted. OSSEOUS STRUCTURES: Mild straightening of lumbar lordosis. The vertebral heights and alignment is normal. There is loss of L3-4, L4-5 and L5-S1 disc heights with vacuum disc phenomena. No aggressive lytic or sclerotic process seen. CT/CT abdomen pelvis w IV con IMPRESSION: Kern's catheter in the bladder with mild bladder wall thickening. No acute process seen in the abdomen except for mild constipation and bilateral simple renal cysts. Bilateral small pleural effusions with bibasilar atelectasis. Fleischner guidelines were followed. Electronically signed by: Gabino Soriano MD 05/07/2024 12:18 PM EST
--- NOTE | ~2024-05-05 | XR_ITS ---
CLINICAL HISTORY: fever 1 views chest Comparison: CT/SR - CHEST WITHOUT CONTRAST [id number] - 08/28/17 11:24 EDT Findings: Cardiac and mediastinal contours are stable. Mild interstitial prominence with scattered peribronchial thickening. Elevation of the left hemidiaphragm. No focal consolidation. No effusion. No pneumothorax. No acute osseous finding. Impression: Mild interstitial prominence. No focal consolidation. This document has been electronically signed by: Brent Duque MD on 05/05/2024 05:49:01
[2024-05-05 04:07] LABS: Basophils Percent Auto 0.1 % (0-2); Hematocrit 27.4 % (42.0-52.0); Hemoglobin 9.5 g/dl (14.0-18.0); Imm Gran Abs Auto 0.08 X10*3/uL (0.00-0.03); Imm Gran Pct Auto 0.6 % (0.0-0.4); Lymphocytes Absolute Auto 0.3 X10*3/uL (1.2-4.9); Lymphocytes Percent Auto 1.9 % (20-40); MANUAL DIFF FLAG SCAN; Mean Corpuscular HGB Conc 34.7 g/dl (31.0-36.0); Mean Corpuscular Hemoglobin 30.8 pg (27.0-33.0); Mean Platelet Volume 9.2 fL (9.4-12.4); Monocytes Absolute Auto 0.7 X10*3/uL (0.1-1.2); Monocytes Percent Auto 5.7 % (2-11); Neutrophils Absolute Auto 11.9 x10*3/uL (2.0-8.3); Neutrophils Percent Auto 91.7 % (45-73); Platelet Count 180 X10*3/uL (160-400); Red Blood Count 3.08 X10*6/uL (4.60-5.80); Red Cell Distribution Width 13.6 % (11.0-16.0); SCAN SMEAR FLAG 1
[2024-05-05] MEDS: SODIUM CHLORIDE 2592 ML IV (04:14)
--- NOTE | 2024-05-05 04:15 | ED.GENADULT ---
HPI - General Adult General Chief complaint: General Medical Stated complaint: LETHARGIC/HYPERTENSIVE Time Seen by Provider: 05/05/24 04:03 Source: EMS Mode of arrival: EMS Limitations: altered mental status History of Present Illness ED Provider: Dr. Kayleigh Whitt HPI narrative: Patient comes to the emergency room via ambulance from [facility]. According to the staff, they noted that patient had a low output on patient's Kern catheter bag. Nurse remove the Kern. Patient was bladder scanned and reporting 1200 mL of urine in the bladder. Patient was straight cath and then a rectal temperature was checked, patient had temp of 100.9 degrees. Patient was also noted to be more lethargic than usual. Patient was sent to the emergency room. Here on arrival, patient is awake and alert but answering questions inappropriately, unclear what patient's mental baseline is. EMS gave the patient an route to the hospital 1 L of normal saline Related Data Home Medications ?Medication ?Instructions ?Recorded ?Confirmed finasteride 5 mg tablet 5 mg PO DAILY 02/05/20 05/05/24 acetaminophen 325 mg tablet 650 mg PO Q6H PRN Fever Or Pain 05/05/24 05/05/24 acetaminophen 500 mg tablet 500 mg PO Q4H PRN Pain 05/05/24 05/05/24 bisacodyl 10 mg rectal suppository 10 mg VT DAILY PRN if no BM for 8 05/05/24 05/05/24 hours after MOM dextrose 40 % oral gel 20 g PO Q15M PRN FSBS <50 and able 05/05/24 05/05/24 to swallow ferrous sulfate 324 mg (65 mg 324 mg PO DAILY 05/05/24 05/05/24 iron) tablet,delayed release glucagon 1 mg solution for 1 mg subcut ONCE PRN BS below 60 05/05/24 05/05/24 injection and unable to swallow insulin glargine 100 unit/mL 25 unit subcut BEDTIME 05/05/24 05/05/24 subcutaneous solution (Lantus U-100 Insulin) insulin lispro 100 unit/mL 5 unit subcut TIDAC 05/05/24 05/05/24 subcutaneous solution (Humalog U-100 Insulin) lactase 3,000 unit tablet 3,000 unit PO QID PRN Lactose 05/05/24 05/05/24 Intolerance levothyroxine 75 mcg tablet 75 mcg PO DAILY@0600 05/05/24 05/05/24 loperamide 2 mg capsule 2 mg PO Q6H PRN Diarrhea 05/05/24 05/05/24 magnesium hydroxide 400 mg/5 mL 30 ml PO DAILY PRN no BM for 3 days 05/05/24 05/05/24 oral suspension (Milk of Magnesia) multivitamin 1 tab PO DAILY 05/05/24 05/05/24 pantoprazole 40 mg tablet,delayed 40 mg PO DAILY 05/05/24 05/05/24 release sodium phosphates 19 gram-7 118 ml VT DAILY PRN if no BM for 8 05/05/24 05/05/24 gram/118 mL enema (Fleet Enema) hours after bisacodyl suppository tamsulosin 0.4 mg capsule 0.4 mg PO BEDTIME 05/05/24 05/05/24 Previous Rx's ?Medication ?Instructions ?Recorded blood-glucose meter ([employer] #1 ea 02/16/20 Verio Flex Start kit) lancets 33 gauge ([employer] #300 ea 02/16/20 Lancets) wheel chair #1 ea 06/16/22 pravastatin 40 mg tablet 40 mg PO BEDTIME 90 days #90 tabs 06/22/23 blood sugar diagnostic ([employer] #300 ea 07/05/23 Verio test strips) Allergies Allergy/AdvReac Type Severity Reaction Status Date / Time bandages/plastic Allergy Intermediate rash Uncoded 05/05/24 03:48 TAPE,PLASTIC Allergy Intermediate RASH Uncoded 05/05/24 03:48 Review of Systems Review of Systems: Constitutional : No Weight loss, No Fever, No Chills, No Night Sweats, No Fatigue, No Malaise ENT/Mouth : No Hearing loss, No Ear Pain, No Nasal Congestion, No Sinus Pain, No Hoarseness, No sore throat, No Rhinorrhea, No Swallowing Difficulty Eyes: No Eye Pain, No Swelling, No Redness, No Foreign Body, No Discharge, No Vision Changes Cardiovascular : No Chest Pain, No SOB, No Dyspnea on Exertion, No Orthopnea, No Edema, No Palpitations Respiratory : No Cough, No Sputum, No Wheezing, No Smoke Exposure, No Dyspnea Gastrointestinal : No Nausea, No Vomiting, No Diarrhea, No Constipation, No abdominal Pain, No Hematochezia, No Melena Genitourinary : no irregular bleeding, No Dysuria, No Urinary Frequency, No Hematuria, No Urinary Incontinence, No Urgency, No Flank Pain, No Urinary Flow Changes, No Hesitancy Musculoskeletal : No joint pain, No Myalgias, No Joint Swelling Skin : No Skin Lesions, No rash Neuro : No Weakness, No Numbness, No Paresthesias, No Loss of Consciousness, No Dizziness, No Headache Psych : No Anxiety/Panic, No Depression, No SI/HI/AH/VH, No Social Issues, Heme/Lymph: No Bruising, No Bleeding,No Lymphadenopathy Endocrine : No Polyuria, No Polydipsia, No Temperature Intolerance [facility] Past Medical History Medical History Lipid disorder Other specified hypothyroidism Carotid bruit Actinic keratosis Hypothyroidism Basal cell carcinoma Hyponatremia Anemia Polyuria Hyperlipidemia LDL goal <100 Essential hypertension Type 2 diabetes mellitus with polyneuropathy Surgical History Hx of tooth extraction Hx of basal cell carcinoma Hx of cataract Hx of cholecystectomy Hx of colonoscopy Family History Family History Father No problems noted. Mother Diabetes Obesities, morbid Paternal Grandmother Diabetes Social History Social History Household Members: None Housing: Apartment Patient Tobacco Use Status: Former Tobacco user Smoked in Last 30 Days: No e-Cigarette/Vaping Use: Never Used Use of substances other than those prescribed or required for medical reasons: No Advance Directives: Yes Advance Directives on File: Yes Advance Directives Date on File: 06/16/22 Do you have a plan to hurt others: No Plan service: No Current occupational status: retired Cognitive needs: No Hearing needs: No Vision needs: Yes Physical Exam ED Vital Signs: Vital Signs - 24 hr 05/05/24 03:43 05/05/24 04:13 05/05/24 04:42 Temperature 99.4 F 101.3 F H 100 F Pulse Rate 87 97 Respiratory Rate 19 14 Blood Pressure 75/33 L 108/33 L Pulse Oximetry 93 95 Oxygen Delivery Method Room Air Room Air Oxygen Flow Rate 05/05/24 05:18 05/05/24 05:38 05/05/24 05:59 Temperature 99.1 F 98.8 F 98.6 F Pulse Rate 90 81 78 Respiratory Rate 14 15 15 Blood Pressure 93/40 L 97/40 L 98/40 L Pulse Oximetry 88 L 96 96 Oxygen Delivery Method Room Air Nasal Cannula Nasal Cannula Oxygen Flow Rate 2 2 05/05/24 06:31 05/05/24 07:29 05/05/24 07:46 Temperature 97.3 F Pulse Rate 74 81 Respiratory Rate 14 12 Blood Pressure 114/52 L 98/33 L 106/47 L Pulse Oximetry 93 99 Oxygen Delivery Method Nasal Cannula Nasal Cannula Oxygen Flow Rate 2 3 05/05/24 08:11 05/05/24 10:09 Temperature 97.6 F 97.6 F Pulse Rate 76 67 Respiratory Rate 15 15 Blood Pressure 108/48 L 120/60 Pulse Oximetry 99 99 Oxygen Delivery Method Nasal Cannula Nasal Cannula Oxygen Flow Rate 2 2 BMI result Body Mass Index 29.0 Const Other: Appearance: Alert. Oriented x1 No acute distress. Eyes: Pupils equal, round and reactive to light. ENT: Pharynx normal. Neck: Normal inspection. Neck supple. No lymph nodes noted. No crepitus CVS: Normal heart rate and rhythm. Pulses normal. Normal S1 and S2 Respiratory: No respiratory distress. Breath sounds normal. No Wheezing. No rales Abdomen: Soft and nontender. No rigidity. No distention. Skin: Skin warm and dry. Normal skin color. Normal skin turgor. Extremities: No lower extremity edema. No Lacerations. No Rash back: Patient has a sacral ulcer stage III. looks clean Neuro: no motor deficit. No sensory deficit. Moving all extremities. No slurred speech. CN 2 through 12 grossly intact Psych: calm, cooperative, normal affect Course Course Course Narrative: Patient has had 2 episodes of hypotension, both in the mid 70s systolic. Patient has a fever 101.3. Sepsis alert called at 04:15, fluids and antibiotics have been started. All of patient's labs and imaging pending, UTI suspected given the EMT/nursing staff report. EMS already administered 1 L of normal saline prior to arrival to the ED Reevaluation(s) Reevaluation #1: Patient was signed out to me at 07:[address] Whitt, I re-examined the patient several times his blood pressure improved lactic acid down trending, I discussed the case with the hospitalist he was accepted to intermediate care. I spoke with the son as well Time: 11:09 Medications Administered Discontinued Medications Generic Name Dose Route Start Last Admin Trade Name Ab PRN Reason Stop Dose Admin Acetaminophen 975 mg 05/05/24 04:17 05/05/24 04:26 Acetaminophen 325 Mg Tablet PO 05/05/24 04:18 975 mg ONCE ONE Administration Sodium Chloride 2,592 mls @ 2,592 mls/hr 05/05/24 04:10 05/05/24 05:38 Ns 30 ml/kg infuse over 1 hr (2592 ml) 05/05/24 05:09 Infused IV Infusion .Q1H STA Levofloxacin 500 mg in 100 mls @ 100 mls/hr 05/05/24 04:10 05/05/24 05:26 Levaquin IV 05/05/24 05:09 Infused ONCE ONE Infusion Sodium Chloride 1,000 mls @ 999 mls/hr 05/05/24 06:08 05/05/24 07:34 Ns IVCONT 05/05/24 07:08 Infused .Q1H1M ONE Infusion Albumin Human 100 mls @ 100 mls/hr 05/05/24 06:30 05/05/24 09:12 Kedbumin 25 % IV 05/05/24 08:29 Infused Q1H MARICRUZ Infusion Cefepime HCl 2 gm/ Sodium 50 mls @ 100 mls/hr 05/05/24 07:35 05/05/24 09:13 Chloride IV 05/05/24 08:04 Infused ONCE ONE Infusion Midodrine 10 mg 05/05/24 06:16 05/05/24 06:31 Midodrine Hcl 10 Mg Tablet PO 05/05/24 06:17 10 mg ONCE ONE Administration Medical Decision Making Medical Decision Making [facility] Narrative: patient has had consecutive hypotensive blood pressures, patient has a fever, from EMS report, seems that patient has a chronic Kern catheterization, was removed, there was blood in the urine, patient likely has a UTI. At this time that I am seeing the patient, 04:15, sepsis alert has been started. patient receiving IV fluids and levofloxacin. Patient getting p.o. acetaminophen. patient received a L of normal saline prior to arrival to the ED All of patient's labs and imaging pending. x-ray negative for infiltrates urinalysis positive for UTI patient's white blood cell count 13.0, rest of hematology at baseline. Chemistry shows a creatinine of 1.42, slightly bumped. Patient receiving IV fluids. Patient's lactic acid 2.1, likely secondary to dehydration. Troponin is bumped 71.6. , repeat troponin due within the next few minutes. No chest pain. - My interpretation of EKG: Normal sinus rhythm, heart rate 84, no ST segment depression or elevation, no T-wave inversion, QTC 427 I discussed the patient with Dr. Menchaca. patient has received a total of 3.5 L of fluids including EMS. Recommendations: Administer 1 more L of fluids. Then reassess. at this time, 06:20, patient has been reassessed. Focused exam performed patient receiving another L of normal saline. It is still borderline with the patient will be going to the floor versus ICU. patient has a sacral ulcer that is well taking care of, we changed his dressing. Differential Diagnosis Differential Diagnoses: The differential diagnosis associated with the presentation includes ( Pneumonia, UTI , cellulitis in sacral ulcer) Lab Data MDM Lab Attestation statement: I reviewed the patient's lab results. 05/05/24 03:59 05/05/24 03:59 Labs: Lab Results 05/05/24 05/05/24 05/05/24 Range/Units 03:59 04:00 04:24 WBC 13.0 H (4.8-10.8) X10*3/uL RBC 3.08 L (4.60-5.80) X10*6/uL Hgb 9.5 L (14.0-18.0) g/dl Hct 27.4 L (42.0-52.0) % MCV 89.0 (80.0-98.0) fL MCH 30.8 (27.0-33.0) pg MCHC 34.7 (31.0-36.0) g/dl RDW 13.6 (11.0-16.0) % Plt Count 180 D (160-400) X10*3/uL MPV 9.2 L (9.4-12.4) fL Immature Gran % (Auto) 0.6 H (0.0-0.4) % Neut % (Auto) 91.7 H (45-73) % Lymph % (Auto) 1.9 L (20-40) % [place] % (Auto) 5.7 (2-11) % Eos % (Auto) 0.0 (0-4) % Baso % (Auto) 0.1 (0-2) % Lymph # (Auto) 0.3 L (1.2-4.9) X10*3/uL [place] # (Auto) 0.7 (0.1-1.2) X10*3/uL Eos # (Auto) 0.0 (0.0-0.4) X10*3/uL Baso # (Auto) 0.0 (0.0-0.2) X10*3/uL Abs Immat Gran (auto) 0.08 H (0.00-0.03) X10*3/uL Absolute Neuts (auto) 11.9 H (2.0-8.3) x10*3/uL Absolute Nucleated RBC 0.000 (0.0-0.012) X10*3/uL Nucleated RBC % (auto) 0.0 (0.0-0.2) /100WBC Smear Tech's Comments VERIFIED Hold Purple Top SEE NOTE Hold Blue Top SEE NOTE Sodium 137 (135-145) mmol/L Potassium 3.8 (3.3-5.1) mmol/L Chloride 107 (96-108) mmol/L Carbon Dioxide 24 (22-29) mmol/L Anion Gap 10 L (12-20) BUN 27 H (9-16) mg/dL Creatinine 1.42 H (0.5-1.4) mg/dL Estim Creat Clear Calc 42.1 Estimated GFR 48 POC Glucose (60-115) mg/dL Random Glucose 211 H (60-115) mg/dL Lactic Acid 2.1 H* (0.5-2.0) mmol/L Lactic Acid F/U @ 2Hr (0.5-2.0) mmol/L Calcium 8.3 L D (8.4-10.2) mg/dL Magnesium 1.5 L (1.6-2.6) mg/dL Total Bilirubin 0.5 (0.0-1.0) mg/dL AST 29 (5-37) U/L ALT 11 (0-40) U/L Alkaline Phosphatase 71 (39-117) U/L Troponin I High Sens 71.6 H (<3.5-35.0) ng/L Total Protein 5.3 L (6.5-8.0) g/dL Albumin 2.8 L (3.5-5.0) g/dL Lipase 6 L (8-78) U/L Urine Color Urine Appearance Urine pH (5.0-9.0) Ur Specific [place] (1.005-1.025) Urine Protein (Neg-Trace) mg/dL Urine Glucose (UA) (Negative) mg/dL Urine Ketones (Negative) mg/dL Urine Blood (Negative) Urine Nitrite (Negative) Ur Leukocyte Esterase (Negative) Urine RBC (0-2) /HPF Urine WBC (0-5) /HPF Ur Squamous Epith Cells (0-2) /HPF Urine Bacteria (None Seen) Hyaline Casts (0-2) /LPF Influenza Type A (PCR) NEGATIVE (Negative) Influenza Type B (PCR) NEGATIVE (Negative) RSV RNA Qual (PCR) NEGATIVE (Negative) SARS-CoV-2 RNA (RT-PCR) NEGATIVE (Negative) 05/05/24 05/05/24 05/05/24 Range/Units 04:34 06:10 10:05 WBC (4.8-10.8) X10*3/uL RBC (4.60-5.80) X10*6/uL Hgb (14.0-18.0) g/dl Hct (42.0-52.0) % MCV (80.0-98.0) fL MCH (27.0-33.0) pg MCHC (31.0-36.0) g/dl RDW (11.0-16.0) % Plt Count (160-400) X10*3/uL MPV (9.4-12.4) fL Immature Gran % (Auto) (0.0-0.4) % Neut % (Auto) (45-73) % Lymph % (Auto) (20-40) % [place] % (Auto) (2-11) % Eos % (Auto) (0-4) % Baso % (Auto) (0-2) % Lymph # (Auto) (1.2-4.9) X10*3/uL [place] # (Auto) (0.1-1.2) X10*3/uL Eos # (Auto) (0.0-0.4) X10*3/uL Baso # (Auto) (0.0-0.2) X10*3/uL Abs Immat Gran (auto) (0.00-0.03) X10*3/uL Absolute Neuts (auto) (2.0-8.3) x10*3/uL Absolute Nucleated RBC (0.0-0.012) X10*3/uL Nucleated RBC % (auto) (0.0-0.2) /100WBC Smear Tech's Comments Hold Purple Top Hold Blue Top Sodium (135-145) mmol/L Potassium (3.3-5.1) mmol/L Chloride (96-108) mmol/L Carbon Dioxide (22-29) mmol/L Anion Gap (12-20) BUN (9-16) mg/dL Creatinine (0.5-1.4) mg/dL Estim Creat Clear Calc Estimated GFR POC Glucose 202 H (60-115) mg/dL Random Glucose (60-115) mg/dL Lactic Acid (0.5-2.0) mmol/L Lactic Acid F/U @ 2Hr 1.5 (0.5-2.0) mmol/L Calcium (8.4-10.2) mg/dL Magnesium (1.6-2.6) mg/dL Total Bilirubin (0.0-1.0) mg/dL AST (5-37) U/L ALT (0-40) U/L Alkaline Phosphatase (39-117) U/L Troponin I High Sens 57.4 H (<3.5-35.0) ng/L Total Protein (6.5-8.0) g/dL Albumin (3.5-5.0) g/dL Lipase (8-78) U/L Urine Color Yellow Urine Appearance Cloudy Urine pH 5.0 (5.0-9.0) Ur Specific [place] 1.015 (1.005-1.025) Urine Protein Trace (Neg-Trace) mg/dL Urine Glucose (UA) Negative (Negative) mg/dL Urine Ketones Trace (Negative) mg/dL Urine Blood Large (3+) H (Negative) Urine Nitrite Negative (Negative) Ur Leukocyte Esterase Large (3+) H (Negative) Urine RBC 11-20 H (0-2) /HPF Urine WBC >50 H (0-5) /HPF Ur Squamous Epith Cells 0-2 (0-2) /HPF Urine Bacteria 4+ (None Seen) Hyaline Casts >20 (0-2) /LPF Influenza Type A (PCR) (Negative) Influenza Type B (PCR) (Negative) RSV RNA Qual (PCR) (Negative) SARS-CoV-2 RNA (RT-PCR) (Negative) Independent Interpretation I performed an independent interpretation of an: Plain X-Ray Radiology Impression Discussion of test interpretation with radiology: I have reviewed the radiologist's reading. Radiologist Impression: Findings: Cardiac and mediastinal contours are stable. Mild interstitial prominence with scattered peribronchial thickening. Elevation of the left hemidiaphragm. No focal consolidation. No effusion. No pneumothorax. No acute osseous finding. Impression: Mild interstitial prominence. No focal consolidation. Discharge Plan Discharge Clinical Impression: Acute UTI Patient Disposition: Admitted As Inpatient Print Language: Stateless
[2024-05-05] MEDS: Acetaminophen 325 MG TABLET 975 MG PO (04:26)
[2024-05-05] MEDS: levoFLOXacin/D5W 500 MG/100 ML PIGGYBACK 100 MG IV (04:26)
[2024-05-05 04:27] LABS: Alanine Aminotransferase 11 U/L (0-40); Albumin Level 2.8 g/dL (3.5-5.0); Alkaline Phosphatase 71 U/L (39-117); Anion Gap 10 (12-20); Aspartate Amino Transferase 29 U/L (5-37); Bilirubin Total 0.5 mg/dL (0.0-1.0); Blood Urea Nitrogen 27 mg/dL (9-16); Calcium 8.3 mg/dL (8.4-10.2); Carbon Dioxide 24 mmol/L (22-29); Chloride 107 mmol/L (96-108); Creatinine Clr Calc Pharmacy 42.1; Estimated Glomerular Filt Rate 48; Glucose Random 211 mg/dL (60-115); Lipase 6 U/L (8-78); Potassium 3.8 mmol/L (3.3-5.1); SLIDE REVIEW VERIFIED; Sodium 137 mmol/L (135-145); Total Protein 5.3 g/dL (6.5-8.0)
[2024-05-05 04:28] LABS: Troponin-I High Sensitivity 71.6 ng/L (<3.5-35.0)
[2024-05-05 04:31] LABS: Lactic Acid 2.1 mmol/L (0.5-2.0)
[2024-05-05 04:38] LABS: Appearance Urine Cloudy; Color Urine Yellow; Glucose Urine UA Negative (Negative); Leukocyte Esterase Urine Large (3+) (Negative); Nitrite Urine Negative (Negative); Specific Gravity - Urine 1.015 (1.005-1.025); UMIC TRIGGER UACC YES; Urine Blood Large (3+) (Negative); Urine Ketones Trace mg/dL (Negative); Urine Protein Trace mg/dL (Neg-Trace)
[2024-05-05 04:50] LABS: Bacteria Urine 4+ (None Seen); Hyaline Casts Urine >20 /LPF (0-2); Squamous Epithelial Cell Urine 0-2 /HPF (0-2); UACC Culture Trigger YES; WBC Urine >50 /HPF (0-5)
[2024-05-05 05:06] LABS: Influenza A PCR NEGATIVE (Negative); Influenza B PCR NEGATIVE (Negative); Resp Syncy Virus RNA Qual PCR NEGATIVE (Negative); SARS COV2 PCR INHOUSE NEGATIVE (Negative)
--- NOTE | 2024-05-05 05:22 | PC.NURSE ---
placed on 2L NC for O2 88% RA when sleeping
[2024-05-05 06:04] LABS: Reflex Lactate? Lactic Acid Added
[2024-05-05 06:13] LABS: Magnesium 1.5 mg/dL (1.6-2.6)
[2024-05-05 06:30] LABS: ~Lactic Acid-LAB USE ONLY 1.5 mmol/L (0.5-2.0)
[2024-05-05] MEDS: Albumin Human 25 % 100 ML IV ×2 (06:31→07:48)
[2024-05-05] MEDS: Midodrine HCl 10 MG TABLET PO (06:31)
[2024-05-05] MEDS: 0.9 % Sodium Chloride 1,000 ML 999 ML IVCONT (06:32)
[2024-05-05 06:36] LABS: Troponin-I High Sensitivity 57.4 ng/L (<3.5-35.0)
[2024-05-05] MEDS: cefEPime HCl 2 GM in 0.9 % Sodium Chloride 50 ML IV (07:51)
--- NOTE | 2024-05-05 08:21 | PHA.MEDREC ---
Pharmacy Consult ? Medication Reconciliation Pharmacy has completed the medication reconciliation, utilized med list from [facility] in [place]. All claims matched what was on the list.
[2024-05-05 10:09] LABS: Glucose, Whole Blood 202 mg/dL (60-115)
--- NOTE | 2024-05-05 11:28 | PM.IMHP ---
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 was transferred to [facility] today since he was noted to have no urine output in Kern bag , bladder scan showed 1200 mL therefore Kern removed and underwent straight catheterization and was noted to have hematuria, patient was also noted to be lethargic with low-grade temp of 100.9 degrees rectal temperature, at [place] emergency room, patient was answering questions inappropriately, he was noted to have low blood pressure of 75/33, with temp of 101.3 degrees, pulse 97, patient was treated aggressively with IV 30 mL/kg fluids, albumin, midodrine 10 mg x 1, patient responded well and blood pressure improved to 120/60 chest x-ray showed no acute consolidation, urinalysis was positive for 4+ bacteria, greater than 50 WBC, IFTIKHAR, lactic acid 2.1 that improved to 1.5 with IV fluids patient received IV cefepime and IV Levaquin and now being admitted to [facility] with a diagnosis of severe sepsis due to UTI. Review of Systems Review of Systems: General no headache no dizziness no fever chills. CVS no chest pain, no palpitation. Respiratory no cough, no shortness of breath Gastrointestinal no nausea no vomiting, no abdominal pain no burning Musculoskeletal no pain All other system reviewed and are negative [facility] Medical History Lipid disorder Other specified hypothyroidism Carotid bruit Actinic keratosis Hypothyroidism Basal cell carcinoma Hyponatremia Anemia Polyuria Hyperlipidemia LDL goal <100 Essential hypertension Type 2 diabetes mellitus with polyneuropathy Family History Father No problems noted. Mother Diabetes Obesities, morbid Paternal Grandmother Diabetes Surgical History Hx of tooth extraction Hx of basal cell carcinoma Hx of cataract Hx of cholecystectomy Hx of colonoscopy Social History Household Members: None Housing: Apartment Patient Tobacco Use Status: Former Tobacco user Smoked in Last 30 Days: No e-Cigarette/Vaping Use: Never Used Use of substances other than those prescribed or required for medical reasons: No Advance Directives: Yes Advance Directives on File: Yes Advance Directives Date on File: 06/16/22 Do you have a plan to hurt others: No Plan Nutrition Risks: No Nutritional Risk service: No Current occupational status: retired Cognitive needs: No Hearing needs: No Vision needs: Yes Meds Allergies Allergy/AdvReac Type Severity Reaction Status Date / Time bandages/plastic Allergy Intermediate rash Uncoded 05/05/24 03:48 TAPE,PLASTIC Allergy Intermediate RASH Uncoded 05/05/24 03:48 Active Medications: Current Medications Acetaminophen (Acetaminophen 325 Mg Tablet) 650 mg PO Q6H PRN PRN Reason: Pain, Mild 1-3,fever,headache Calcium Carbonate (Calcium Carbonate 750 Mg Tab.Chew) 750 mg PO Q4H PRN PRN Reason: Heartburn Finasteride (Finasteride 5 Mg Tablet) 5 mg PO DAILY COUNT INCLUDES [facility] Glucose (Glucose Gel 15 Gm Gel..Gram.) 15 gm PO Q15M PRN; Protocol PRN Reason: per Hypoglycemia Standing Ord. Dextrose (D10) 250 mls @ 750 mls/hr IV Q15M PRN; Protocol PRN Reason: per Hypoglycemia Standing Ord. Insulin Human Lispro (Insulin Lispro 100 Unit/Ml 3 Ml Vial) 0 unit SUBCUT QIDACHS COUNT INCLUDES THE [facility]; Protocol Levothyroxine Sodium (Levothyroxine Sodium 75 Mcg Tablet) 75 mcg PO DAILY@0600 COUNT INCLUDES THE [facility] Magnesium Hydroxide (Milk Of Magnesia 30 Ml Oral.Susp) 30 ml PO DAILY PRN PRN Reason: Constipation Melatonin (Melatonin 3 Mg Tablet) 6 mg PO BEDTIME PRN PRN Reason: Insomnia Multivitamins/Vitamin C (Multivitamin Tablet) 1 tab PO DAILY COUNT INCLUDES [facility] Omeprazole (Omeprazole 20 Mg Capsule.Dr) 20 mg PO DAILY@0630 COUNT INCLUDES THE [facility] Ondansetron HCl (Ondansetron Hcl 4 Mg/2 Ml Vial) 4 mg IVPUSH Q8H PRN PRN Reason: Nausea and Vomiting Sodium Chloride (0.9 % Sodium Chloride Flush 3 Ml Syringe) [facility] Medications ?Medication ?Instructions ?Recorded ?Confirmed ?Last Taken ?Type finasteride 5 mg tablet 5 mg PO DAILY 02/05/20 05/05/24 Unknown History acetaminophen 325 mg tablet 650 mg PO Q6H PRN Fever Or Pain 05/05/24 05/05/24 Unknown History acetaminophen 500 mg tablet 500 mg PO Q4H PRN Pain 05/05/24 05/05/24 Unknown History bisacodyl 10 mg rectal suppository 10 mg HI DAILY PRN if no BM for 8 05/05/24 05/05/24 Unknown History hours after MOM dextrose 40 % oral gel 20 g PO Q15M PRN FSBS <50 and able 05/05/24 05/05/24 Unknown History to swallow ferrous sulfate 324 mg (65 mg 324 mg PO DAILY 05/05/24 05/05/24 Unknown History iron) tablet,delayed release glucagon 1 mg solution for 1 mg subcut ONCE PRN BS below 60 05/05/24 05/05/24 Unknown History injection and unable to swallow insulin glargine 100 unit/mL 25 unit subcut BEDTIME 05/05/24 05/05/24 Unknown History subcutaneous solution (Lantus U-100 Insulin) insulin lispro 100 unit/mL 5 unit subcut TIDAC 05/05/24 05/05/24 Unknown History subcutaneous solution (Humalog U-100 Insulin) lactase 3,000 unit tablet 3,000 unit PO QID PRN Lactose 05/05/24 05/05/24 Unknown History Intolerance levothyroxine 75 mcg tablet 75 mcg PO DAILY@0600 05/05/24 05/05/24 Unknown History loperamide 2 mg capsule 2 mg PO Q6H PRN Diarrhea 05/05/24 05/05/24 Unknown History magnesium hydroxide 400 mg/5 mL 30 ml PO DAILY PRN no BM for 3 days 05/05/24 05/05/24 Unknown History oral suspension (Milk of Magnesia) multivitamin 1 tab PO DAILY 05/05/24 05/05/24 Unknown History pantoprazole 40 mg tablet,delayed 40 mg PO DAILY 05/05/24 05/05/24 Unknown History release sodium phosphates 19 gram-7 118 ml HI DAILY PRN if no BM for 8 05/05/24 05/05/24 Unknown History gram/118 mL enema (Fleet Enema) hours after bisacodyl suppository tamsulosin 0.4 mg capsule 0.4 mg PO BEDTIME 05/05/24 05/05/24 Unknown History Physical Exam Vital Signs and Narrative: Vital Signs: Last Vital Signs Temp 97.6 F 05/05/24 10:09 Pulse 67 05/05/24 10:09 Resp 15 05/05/24 10:09 BP 120/60 05/05/24 10:09 Pulse Ox 99 05/05/24 10:09 O2 Del Method Nasal Cannula 05/05/24 10:09 O2 Flow Rate 2 05/05/24 10:09 BMI result Body Mass Index 29.0 Const: Other: General resting comfortably in no acute distress. Moist mucous membrane Neck no JVD. CVS regular rate rhythm, Respiratory lungs clear to auscultation, no respiratory distress, no wheeze, no rhonchi. Gastrointestinal abdomen soft, non tender, bowel sounds audible, no guarding , no rigidity. Extremities no edema. Neuro non focal Skin no rash Psych appropriate affect Results Labs 05/06/24 04:01 05/06/24 04:01 Labs: Laboratory Results - last 24 hr 05/05/24 05/05/24 05/05/24 03:59 04:00 04:24 MCV 89.0 MCH 30.8 MCHC 34.7 RDW 13.6 Plt Count 180 D MPV 9.2 L Immature Gran % (Auto) 0.6 H Neut % (Auto) 91.7 H Lymph % (Auto) 1.9 L [place] % (Auto) 5.7 Eos % (Auto) 0.0 Baso % (Auto) 0.1 Lymph # (Auto) 0.3 L [place] # (Auto) 0.7 Eos # (Auto) 0.0 Baso # (Auto) 0.0 Abs Immat Gran (auto) 0.08 H Absolute Neuts (auto) 11.9 H Absolute Nucleated RBC 0.000 Nucleated RBC % (auto) 0.0 Smear Tech's Comments VERIFIED Hold Purple Top SEE NOTE Hold Blue Top SEE NOTE Anion Gap 10 L Estim Creat Clear Calc 42.1 Estimated GFR 48 POC Glucose Random Glucose 211 H Lactic Acid 2.1 H* Lactic Acid F/U @ 2Hr Calcium 8.3 L D Magnesium 1.5 L Total Bilirubin 0.5 AST 29 ALT 11 Alkaline Phosphatase 71 Troponin I High Sens 71.6 H Total Protein 5.3 L Albumin 2.8 L Lipase 6 L Urine Color Urine Appearance Urine pH Ur Specific [place] Urine Protein Urine Glucose (UA) Urine Ketones Urine Blood Urine Nitrite Ur Leukocyte Esterase Urine RBC Urine WBC Ur Squamous Epith Cells Urine Bacteria Hyaline Casts Influenza Type A (PCR) NEGATIVE Influenza Type B (PCR) NEGATIVE RSV RNA Qual (PCR) NEGATIVE SARS-CoV-2 RNA (RT-PCR) NEGATIVE 05/05/24 05/05/24 05/05/24 04:34 06:10 10:05 MCV MCH MCHC RDW Plt Count MPV Immature Gran % (Auto) Neut % (Auto) Lymph % (Auto) [place] % (Auto) Eos % (Auto) Baso % (Auto) Lymph # (Auto) [place] # (Auto) Eos # (Auto) Baso # (Auto) Abs Immat Gran (auto) Absolute Neuts (auto) Absolute Nucleated RBC Nucleated RBC % (auto) Smear Tech's Comments Hold Purple Top Hold Blue Top Anion Gap Estim Creat Clear Calc Estimated GFR POC Glucose 202 H Random Glucose Lactic Acid Lactic Acid F/U @ 2Hr 1.5 Calcium Magnesium Total Bilirubin AST ALT Alkaline Phosphatase Troponin I High Sens 57.4 H Total Protein Albumin Lipase Urine Color Yellow Urine Appearance Cloudy Urine pH 5.0 Ur Specific [place] 1.015 Urine Protein Trace Urine Glucose (UA) Negative Urine Ketones Trace Urine Blood Large (3+) H Urine Nitrite Negative Ur Leukocyte Esterase Large (3+) H Urine RBC 11-20 H Urine WBC >50 H Ur Squamous Epith Cells 0-2 Urine Bacteria 4+ Hyaline Casts >20 Influenza Type A (PCR) Influenza Type B (PCR) RSV RNA Qual (PCR) SARS-CoV-2 RNA (RT-PCR) Assessment and Plan (1) Acute UTI: Status: Acute Plan 83-year-old gentleman resident of [facility], with past medical history significant for diabetes mellitus, urinary retention on chronic indwelling Kern catheter was sent to [place] emergency room due to lethargy, blocked Kern catheter with hematuria and urinary retention in ED patient noted to have acute encephalopathy, hypotension treated aggressively with IV fluids IV antibiotics encephalopathy resolved patient is now being admitted to [facility] with a diagnosis of UTI and sepsis. Severe sepsis due to UTI Noted to have fever, leukocytosis, hypotension and IFTIKHAR treated aggressively with IV fluid, BP improved, lactic acid normalized IV ceftriaxone, follow urine and blood cultures Acute toxic metabolic encephalopathy due to UTI/sepsis/IFTIKHAR present on arrival to ED resolved with IV hydration and IV antibiotics. Elevated troponin likely due to sepsis patient asymptomatic with no acute EKG changes. Mild IFTIKHAR treated with IV fluids follow BMP Urinary retention with chronic Kern catheter, Kern changed, continue Flomax. Diabetes mellitus type 2 elevated blood sugar of 202, place on diabetic diet, insulin sliding scale and resume basal insulin Lantus 20 units, home dose 25 units. Hypothyroidism continue levothyroxine check TSH. Hyperlipidemia continue pravastatin DNR DNI DVT prophylaxis with Lovenox In my clinical judgment patient required 2 night inpatient hospitalization for treatment of sepsis with UTI requiring IV hydration IV antibiotic will need urine and blood culture monitoring. Quality Stroke Does the patient have a stroke diagnosis?: No VTE Prior VTE?: No VTE Risk Level:: Medical - moderate - high VTE Device Contraindication: Treatment Not Indicated VTE Drug Contraindication: N/A - Med Ordered
[2024-05-05 12:05] LABS: Thyroid Stimulating Hormone 1.16 uIU/mL (0.32-4.0)
[2024-05-05 12:06] LABS: Glucose, Whole Blood 187 mg/dL (60-115)
[2024-05-05] MEDS: cefTRIAXone sodium 1 GM VIAL IVPUSH ×2 (12:39→20:35)
[2024-05-05] MEDS: Insulin Lispro 100 UNIT/ML 3 ML VIAL SUBCUT ×2 (12:39→22:17)
[2024-05-05 17:20] LABS: Glucose, Whole Blood 153 mg/dL (60-115)
[2024-05-05] MEDS: 0.9 % Sodium Chloride Flush 3 ML SYRINGE IVFLUSH (17:28)
[2024-05-05] MEDS: Pravastatin Sodium 40 MG TABLET PO (20:35)
[2024-05-05] MEDS: Tamsulosin HCL 0.4 MG CAPSULE PO (20:35)
[2024-05-05] MEDS: Insulin Glargine,Hum.rec.anlog 100 UNIT/ML 10 ML VIAL 20 UNIT SUBCUT (20:35)
[2024-05-05 22:03] LABS: Glucose, Whole Blood 174 mg/dL (60-115)
[2024-05-06] VITALS (10 sets, daily range): BP systolic 98–157; BP diastolic 38–72; PULSE 63–89; RESP 12–19; TEMP 36.3–37.7; O2SAT 95–100
--- NOTE | 2024-05-06 00:16 | PC.NURSE ---
O2 Sat down to 88-90% RA when patient asleep. O2 applied at 2 LPM NC with improvement noted 92-95%.
--- NOTE | 2024-05-06 00:34 | PC.NURSE ---
Dr. Mckeon informed of temp 100.1 via temp sensing lainez and soft BP's 97-100/50's with HR 76.
[2024-05-06] MEDS: 0.9 % Sodium Chloride Flush 3 ML SYRINGE IVFLUSH ×4 (01:59→21:40)
[2024-05-06] MEDS: Acetaminophen 325 MG TABLET 650 MG PO (02:03)
[2024-05-06] MEDS: Lactated Ringers 500 ML IV (02:06)
[2024-05-06 05:16] LABS: Hematocrit 27.9 % (42.0-52.0); Hemoglobin 9.2 g/dl (14.0-18.0); Mean Corpuscular Hemoglobin 30.2 pg (27.0-33.0); Mean Corpuscular Volume 91.5 fL (80.0-98.0); Mean Platelet Volume 9.7 fL (9.4-12.4); Platelet Count 142 X10*3/uL (160-400); Red Blood Count 3.05 X10*6/uL (4.60-5.80); Red Cell Distribution Width 13.8 % (11.0-16.0); White Blood Count 8.3 X10*3/uL (4.8-10.8)
[2024-05-06 05:30] LABS: Anion Gap 10 (12-20); Blood Urea Nitrogen 19 mg/dL (9-16); Calcium 8.7 mg/dL (8.4-10.2); Carbon Dioxide 23 mmol/L (22-29); Chloride 109 mmol/L (96-108); Creatinine Clr Calc Pharmacy 71.2; Estimated Glomerular Filt Rate > 60; Glucose Random 87 mg/dL (60-115); Potassium 3.7 mmol/L (3.3-5.1); Sodium 138 mmol/L (135-145)
[2024-05-06] MEDS: Omeprazole 40 MG CAPSULE.DR PO (06:01)
[2024-05-06] MEDS: Levothyroxine Sodium 75 MCG TABLET PO (06:01)
--- NOTE | 2024-05-06 07:52 | MHC.EDTECH ---
POC taken, (114 result), RN aware, pt provided breakfast tray
[2024-05-06 07:54] LABS: Glucose, Whole Blood 114 mg/dL (60-115)
[2024-05-06] MEDS: Finasteride 5 MG TABLET PO (10:25)
[2024-05-06] MEDS: Ferrous Sulfate 324 MG TABLET.DR PO (10:25)
--- NOTE | 2024-05-06 10:25 | P.PNIM_ITS ---
Subjective Subjective Date of Service: 05/06/24 Interval History: Being followed for severe sepsis/UTI awake, alert, answering questions appropriately, denies pain, no urinary symptoms of urgency frequency, no fevers, no chills no acute events overnight. Review of Systems All other system reviewed and are negative. Physical Exam 2 Vital Signs: Vital Signs: Last Vital Signs Temp 98.6 F 05/06/24 08:03 Pulse 89 05/06/24 08:03 Resp 19 05/06/24 08:03 BP 126/68 05/06/24 08:03 Pulse Ox 100 05/06/24 08:03 O2 Del Method Room Air 05/06/24 08:03 O2 Flow Rate 1 05/06/24 06:00 BMI result Body Mass Index 29.0 Const: Other: General resting comfortably in no acute distress. Moist mucous membrane Neck no JVD. CVS regular rate rhythm, Respiratory lungs clear to auscultation, no respiratory distress, no wheeze, no rhonchi. Gastrointestinal abdomen soft, non tender, bowel sounds audible, no guarding , no rigidity. Extremities no edema. Neuro non focal Skin no rash Psych appropriate affect Kern catheter clear urine Objective Data Active Medications Acetaminophen (Acetaminophen 325 Mg Tablet) 650 mg PO Q6H PRN PRN Reason: Pain, Mild 1-3,fever,headache Last Admin: 05/06/24 02:03 Dose: 650 mg Documented By: ASHKAN Calcium Carbonate (Calcium Carbonate 750 Mg Tab.Chew) 750 mg PO Q4H PRN PRN Reason: Heartburn Ceftriaxone Sodium (Ceftriaxone Sodium 2 Gm Vial) 2 gm IVPUSH Q24H [facility] Ferrous Sulfate (Ferrous Sulfate 324 Mg Tablet.Dr) 324 mg PO DAILY [facility] Finasteride (Finasteride 5 Mg Tablet) 5 mg PO DAILY [facility] Glucose (Glucose Gel 15 Gm Gel..Gram.) 15 gm PO Q15M PRN; Protocol PRN Reason: per Hypoglycemia Standing Ord. Dextrose (D10) 250 mls @ 750 mls/hr IV Q15M PRN; Protocol PRN Reason: per Hypoglycemia Standing Ord. Insulin Glargine (Insulin Glargine,Hum.Rec.Anlog 100 Unit/Ml 10 Ml Vial) 20 unit SUBCUT BEDTIME [facility] Last Admin: 05/05/24 20:35 Dose: 20 unit Documented By: OLGA Insulin Human Lispro (Insulin Lispro 100 Unit/Ml 3 Ml Vial) 0 unit SUBCUT QIDACHS [facility]; Protocol Last Admin: 05/06/24 08:06 Dose: Not Given Documented By: NICOLÁS Non-Admin Reason: No Insulin Coverage Comments: Poc 114, no insulin coverage needed Levothyroxine Sodium (Levothyroxine Sodium 75 Mcg Tablet) 75 mcg PO DAILY@0600 [facility] Last Admin: 05/06/24 06:01 Dose: 75 mcg Documented By: OLGA Magnesium Hydroxide (Milk Of Magnesia 30 Ml Oral.Susp) 30 ml PO DAILY PRN PRN Reason: Constipation Melatonin (Melatonin 3 Mg Tablet) 6 mg PO BEDTIME PRN PRN Reason: Insomnia Multivitamins/Vitamin C (Multivitamin Tablet) 1 tab PO DAILY [facility] Omeprazole (Omeprazole 40 Mg Capsule.Dr) 40 mg PO DAILY@0630 [facility] Last Admin: 05/06/24 06:01 Dose: 40 mg Documented By: OLGA Ondansetron HCl (Ondansetron Hcl 4 Mg/2 Ml Vial) 4 mg IVPUSH Q8H PRN PRN Reason: Nausea and Vomiting Pravastatin Sodium (Pravastatin Sodium 40 Mg Tablet) 40 mg PO BEDTIME [facility] Last Admin: 05/05/24 20:35 Dose: 40 mg Documented By: OLGA Sodium Chloride (0.9 % Sodium Chloride Flush 3 Ml Syringe) 3 ml IVFLUSH QSHIFT [facility] Last Admin: 05/06/24 01:59 Dose: 3 ml Documented By: ASHKAN Tamsulosin HCl (Tamsulosin Hcl 0.4 Mg Capsule) 0.4 mg PO BEDTIME [facility] Last Admin: 05/05/24 20:35 Dose: 0.4 mg Documented By: OLGA Labs 05/06/24 04:01 05/06/24 04:01 Labs: Laboratory Results - last 24 hr 05/05/24 05/05/24 05/05/24 03:59 11:47 17:15 MCV MCH MCHC RDW Plt Count MPV Absolute Nucleated RBC Nucleated RBC % (auto) Anion Gap Estim Creat Clear Calc Estimated GFR POC Glucose 187 H 153 H Random Glucose Calcium TSH 1.16 05/05/24 05/06/24 05/06/24 21:56 04:01 07:48 MCV 91.5 MCH 30.2 MCHC 33.0 RDW 13.8 Plt Count 142 L MPV 9.7 Absolute Nucleated RBC 0.000 Nucleated RBC % (auto) 0.0 Anion Gap 10 L Estim Creat Clear Calc 71.2 Estimated GFR > 60 POC Glucose 174 H 114 Random Glucose 87 Calcium 8.7 TSH Microbiology Microbiology Results: Microbiology 05/05/24 06:10 Urine Culture - Final Urine Catheterized - Kern Catheter 05/05/24 04:24 Blood Culture - Preliminary Blood - Venous Prelim: GNR Gram Stain only 05/05/24 03:59 Blood Culture - Preliminary Blood - Venous Prelim: GNR Gram Stain only Assessment and Plan (1) Acute UTI: Status: Acute (2) Severe sepsis: Status: Acute Plan 83-year-old gentleman resident of [facility], with past medical history significant for diabetes mellitus, urinary retention on chronic indwelling Kern catheter was sent to [place] emergency room due to lethargy, blocked Kern catheter with hematuria and urinary retention in ED patient noted to have acute encephalopathy, hypotension treated aggressively with IV fluids IV antibiotics encephalopathy resolved patient is now being admitted to [facility] with a diagnosis of UTI and sepsis. Severe sepsis due to UTI Noted to have fever, leukocytosis, hypotension and IFTIKHAR on admission WBC and lactic acid normalized, persistent low-grade fever Blood cultures 2/2 growing Gram-negative cesar Continue IV ceftriaxone changed to 2 g daily, Urine culture grew greater than 100,000 mixed bacterial nik, follow final blood cultures Acute toxic metabolic encephalopathy due to UTI/sepsis/IFTIKHAR Resolved. Elevated troponin likely due to sepsis patient asymptomatic with no acute EKG changes, no further workup warranted. Mild IFTIKHAR resolved status post IV fluids. Urinary retention with chronic Kern catheter, Kern changed, continue Flomax. Diabetes mellitus type 2 blood sugars improved, continue diabetic diet, insulin sliding scale and resume basal insulin Lantus 20 units, home dose 25 units. Hypothyroidism continue levothyroxine , TSH 1.16. Hyperlipidemia continue pravastatin DNR DNI DVT prophylaxis with Lovenox In my clinical judgment patient requires continued inpatient hospitalization for treatment of sepsis with UTI requiring IV antibiotic and blood culture monitoring. Quality Stroke Does the patient have a stroke diagnosis?: No VTE Prior VTE?: No VTE Risk Level:: Medical - moderate - high VTE Device Contraindication: Treatment Not Indicated VTE Drug Contraindication: N/A - Med Ordered
[2024-05-06] MEDS: Multivitamin TABLET 1 TAB PO (10:26)
[2024-05-06 12:38] LABS: Glucose, Whole Blood 153 mg/dL (60-115)
[2024-05-06] MEDS: cefTRIAXone sodium 2 GM VIAL IVPUSH (13:06)
[2024-05-06] MEDS: Insulin Lispro 100 UNIT/ML 3 ML VIAL SUBCUT ×3 (13:06→21:39)
--- NOTE | 2024-05-06 14:19 | MHC.CM.PN ---
pt from [facility] where he will return when dcd
--- NOTE | 2024-05-06 16:05 | HO.WOUND ---
Wound Consult: Initial 83yr old? male admitted to [facility] on 05/05/24 - See progress notes and H&P for detailed history.? Wound consult placed for coccyx wound POA.? Patient agreeable to assessment and photo documentation.? 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 MASD - and macerated No Induration, Fluctuance or Warmth noted Pain: denies pain Goals of Treatment: ? Durafiber AG for moisture management Recommendations: 1. Turn and Reposition every 2 hours and as needed for patient comfort.? Use pillows or wedges to support off loading positions. 2. Off Load all bony prominences with use of pillows and heel boots if needed.? Apply Preventative foams where needed. ? 3. Monitor for incontinence and moisture control, use barrier creams when needed for prevention and treatment. 4. Provide adequate and supplemental nutrition.? 5. Order low air loss mattress. Waffle cushion to recliner chair when up. 6. When applicable maintain blood glucose levels per Providers order. 7. Coccyx - Off Load Pressure with Q2hr turns and pillows. Waffle cushion when up to chair. Cleanse and irrigate with NS, pat dry. Apply barrier cream to periwound, lightly pack wound bed with Durafiber AG to fill space, Cover with foam dressing change every other day. Re-consult wound care Nurse for wound deterioration or wound changes.
[2024-05-06 16:44] LABS: Glucose, Whole Blood 236 mg/dL (60-115)
[2024-05-06 20:41] LABS: Glucose, Whole Blood 175 mg/dL (60-115)
[2024-05-06] MEDS: Pravastatin Sodium 40 MG TABLET PO (21:39)
[2024-05-06] MEDS: Tamsulosin HCL 0.4 MG CAPSULE PO (21:39)
[2024-05-06] MEDS: Insulin Glargine,Hum.rec.anlog 100 UNIT/ML 10 ML VIAL 20 UNIT SUBCUT (21:40)
[2024-05-07 04:00] VITALS: BP 142/64; PULSE 70; RESP 16; TEMP 36.6; O2SAT 97
[2024-05-07] MEDS: Levothyroxine Sodium 75 MCG TABLET PO (05:54)
[2024-05-07] MEDS: Omeprazole 40 MG CAPSULE.DR PO (05:54)
[2024-05-07 07:21] VITALS: BP 132/67; PULSE 63; RESP 16; TEMP 36.6; O2SAT 96
[2024-05-07 07:55] LABS: Glucose, Whole Blood 167 mg/dL (60-115)
[2024-05-07] MEDS: Finasteride 5 MG TABLET PO (08:53)
[2024-05-07] MEDS: Multivitamin TABLET 1 TAB PO (08:53)
[2024-05-07] MEDS: Ferrous Sulfate 324 MG TABLET.DR PO (08:53)
[2024-05-07] MEDS: 0.9 % Sodium Chloride Flush 3 ML SYRINGE IVFLUSH ×2 (08:56→15:01)
[2024-05-07 10:01] VITALS: BMI 29.0
--- NOTE | 2024-05-07 10:08 | MHC.CLN ---
NUTRITION DIET=DIABETIC 2000 KCALS. 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 ADDING ENSURE MAX BID TO PROMOTE WOUND HEALING. SUPPLEMENT PROVIDES 300 KCALS, 60 G PROTEIN. FOLLOW FOR PO INTAKE AND SKIN INTEGRITY. SEE CLINICAL NUTRITION ASSESSMENT 05/07/24.
[2024-05-07] MEDS: iohexoL 350 MG/ML 100 ML INFUS..BTL IV (10:26)
[2024-05-07 12:00] VITALS: BP 133/60; PULSE 70; RESP 18; TEMP 36.6; O2SAT 95
[2024-05-07 12:04] LABS: Glucose, Whole Blood 260 mg/dL (60-115)
[2024-05-07] MEDS: cefTRIAXone sodium 2 GM VIAL IVPUSH (12:04)
[2024-05-07] MEDS: Insulin Lispro 100 UNIT/ML 3 ML VIAL SUBCUT ×3 (12:15→20:07)
--- NOTE | 2024-05-07 13:14 | P.PNIM_ITS ---
Subjective Subjective Date of Service: 05/07/24 Interval History: Being followed for severe sepsis/UTI Resting comfortably offers no acute complaints, no urinary symptoms of urgency frequency, no fever, no chills, tolerating diet. Review of Systems All other system reviewed and are negative. Physical Exam 2 Vital Signs: Vital Signs: Last Vital Signs Temp 97.8 F 05/07/24 12:00 Pulse 70 05/07/24 12:00 Resp 18 05/07/24 12:00 BP 133/60 05/07/24 12:00 Pulse Ox 95 05/07/24 12:00 O2 Del Method Room Air 05/07/24 12:00 O2 Flow Rate 1 05/06/24 06:00 BMI result Body Mass Index 29.0 Const: Other: General resting comfortably in no acute distress. Moist mucous membrane Neck no JVD. CVS regular rate rhythm, Respiratory lungs clear to auscultation, no respiratory distress, no wheeze, no rhonchi. Gastrointestinal abdomen soft, non tender, bowel sounds audible, no guarding , no rigidity. Extremities no edema. Neuro non focal Skin no rash Psych appropriate affect Kern catheter clear urine Objective Data Active Medications Acetaminophen (Acetaminophen 325 Mg Tablet) 650 mg PO Q6H PRN PRN Reason: Pain, Mild 1-3,fever,headache Last Admin: 05/06/24 02:03 Dose: 650 mg Documented By: ASHKAN Calcium Carbonate (Calcium Carbonate 750 Mg Tab.Chew) 750 mg PO Q4H PRN PRN Reason: Heartburn Ceftriaxone Sodium (Ceftriaxone Sodium 2 Gm Vial) 2 gm IVPUSH Q24H [facility] Last Admin: 05/07/24 12:04 Dose: 2 gm Documented By: SYLVIE Ferrous Sulfate (Ferrous Sulfate 324 Mg Tablet.Dr) 324 mg PO DAILY [facility] Last Admin: 05/07/24 08:53 Dose: 324 mg Documented By: SYLVIE Finasteride (Finasteride 5 Mg Tablet) 5 mg PO DAILY [facility] Last Admin: 05/07/24 08:53 Dose: 5 mg Documented By: SYLVIE Glucose (Glucose Gel 15 Gm Gel..Gram.) 15 gm PO Q15M PRN; Protocol PRN Reason: per Hypoglycemia Standing Ord. Dextrose (D10) 250 mls @ 750 mls/hr IV Q15M PRN; Protocol PRN Reason: per Hypoglycemia Standing Ord. Insulin Glargine (Insulin Glargine,Hum.Rec.Anlog 100 Unit/Ml 10 Ml Vial) 20 unit SUBCUT BEDTIME [facility] Last Admin: 05/06/24 21:40 Dose: 20 unit Documented By: RAYSHAWN Insulin Human Lispro (Insulin Lispro 100 Unit/Ml 3 Ml Vial) 0 unit SUBCUT QIDACHS [facility]; Protocol Last Admin: 05/07/24 12:15 Dose: 6 unit Documented By: SYLVIE Levothyroxine Sodium (Levothyroxine Sodium 75 Mcg Tablet) 75 mcg PO DAILY@0600 [facility] Last Admin: 05/07/24 05:54 Dose: 75 mcg Documented By: RAYSHAWN Magnesium Hydroxide (Milk Of Magnesia 30 Ml Oral.Susp) 30 ml PO DAILY PRN PRN Reason: Constipation Melatonin (Melatonin 3 Mg Tablet) 6 mg PO BEDTIME PRN PRN Reason: Insomnia Multivitamins/Vitamin C (Multivitamin Tablet) 1 tab PO DAILY [facility] Last Admin: 05/07/24 08:53 Dose: 1 tab Documented By: SYLVIE Omeprazole (Omeprazole 40 Mg Capsule.Dr) 40 mg PO DAILY@0630 [facility] Last Admin: 05/07/24 05:54 Dose: 40 mg Documented By: RAYSHAWN Ondansetron HCl (Ondansetron Hcl 4 Mg/2 Ml Vial) 4 mg IVPUSH Q8H PRN PRN Reason: Nausea and Vomiting Pravastatin Sodium (Pravastatin Sodium 40 Mg Tablet) 40 mg PO BEDTIME [facility] Last Admin: 05/06/24 21:39 Dose: 40 mg Documented By: RAYSHAWN Sodium Chloride (0.9 % Sodium Chloride Flush 3 Ml Syringe) 3 ml IVFLUSH QSHIFT [facility] Last Admin: 05/07/24 08:56 Dose: 3 ml Documented By: SYLVIE Tamsulosin HCl (Tamsulosin Hcl 0.4 Mg Capsule) 0.4 mg PO BEDTIME [facility] Last Admin: 05/06/24 21:39 Dose: 0.4 mg Documented By: RAYSHAWN Labs 05/06/24 04:01 05/06/24 04:01 Labs: Laboratory Results - last 24 hr 05/06/24 05/06/24 05/07/24 16:40 20:26 07:24 POC Glucose 236 H 175 H 167 H 05/07/24 11:59 POC Glucose 260 H Microbiology Microbiology Results: Microbiology 05/05/24 04:24 Blood Culture - Preliminary Blood - Venous Gram negative cesar 05/05/24 03:59 Blood Culture - Preliminary Blood - Venous Gram negative cesar 05/05/24 06:10 Urine Culture - Final Urine Catheterized - Kern Catheter Assessment and Plan (1) Severe sepsis: Status: Acute Plan 83-year-old gentleman resident of [facility] with past medical history significant for diabetes mellitus, urinary retention on chronic indwelling Kern catheter was sent to [place] emergency room due to lethargy, blocked Kern catheter with hematuria and urinary retention in ED patient noted to have acute encephalopathy, hypotension treated aggressively with IV fluids IV antibiotics encephalopathy resolved patient is now being admitted to [facility] with a diagnosis of UTI and sepsis. Severe sepsis likely due to UTI Noted to have fever, leukocytosis, hypotension and IFTIKHAR on admission WBC and lactic acid normalized, no recurrent fever Blood cultures 2/2 growing Gram-negative cesar Continue IV ceftriaxone 2 g daily, Urine culture grew greater than 100,000 mixed bacterial nik, follow final blood cultures CT abdomen and pelvis showed no acute abnormality ID consult Acute toxic metabolic encephalopathy due to UTI/sepsis/IFTIKHAR Resolved. Elevated troponin likely due to sepsis patient asymptomatic with no acute EKG changes, no further workup warranted. Mild IFTIKHAR resolved status post IV fluids. Urinary retention with chronic Kern catheter, Kern changed, continue Flomax. Diabetes mellitus type 2 blood sugars elevated, continue diabetic diet, insulin sliding scale and increase basal insulin to Lantus 25 units. Hypothyroidism continue levothyroxine , TSH 1.16. Hyperlipidemia continue pravastatin DNR DNI DVT prophylaxis with Lovenox In my clinical judgment patient requires continued inpatient hospitalization for treatment of sepsis with UTI requiring IV antibiotic and blood culture monitoring. Quality Stroke Does the patient have a stroke diagnosis?: No VTE Prior VTE?: No VTE Risk Level:: Medical - moderate - high VTE Device Contraindication: Treatment Not Indicated VTE Drug Contraindication: N/A - Med Ordered
--- NOTE | 2024-05-07 15:35 | MHC.CM.PN ---
per rounds pt not medically ready for dc
[2024-05-07 15:50] VITALS: BP 128/59; PULSE 62; RESP 16; TEMP 36.2; O2SAT 97
[2024-05-07 16:14] LABS: Glucose, Whole Blood 256 mg/dL (60-115)
[2024-05-07 18:59] VITALS: BP 142/67; PULSE 71; RESP 18; TEMP 36.2; O2SAT 97
[2024-05-07 19:27] LABS: Glucose, Whole Blood 244 mg/dL (60-115)
[2024-05-07] MEDS: Pravastatin Sodium 40 MG TABLET PO (20:07)
[2024-05-07] MEDS: Insulin Glargine,Hum.rec.anlog 100 UNIT/ML 10 ML VIAL 25 UNIT SUBCUT (20:07)
[2024-05-07] MEDS: Tamsulosin HCL 0.4 MG CAPSULE PO (20:08)
[2024-05-07 23:29] VITALS: BP 134/62; PULSE 62; RESP 14; TEMP 36.1; O2SAT 96
[2024-05-08 03:05] VITALS: BP 123/57; PULSE 62; RESP 16; TEMP 36.3; O2SAT 96
[2024-05-08] MEDS: Levothyroxine Sodium 75 MCG TABLET PO (05:54)
[2024-05-08] MEDS: Omeprazole 40 MG CAPSULE.DR PO (05:54)
[2024-05-08 07:26] LABS: Glucose, Whole Blood 207 mg/dL (60-115)
[2024-05-08 07:51] VITALS: BP 111/56; PULSE 70; RESP 18; TEMP 36.5; O2SAT 95
[2024-05-08] MEDS: 0.9 % Sodium Chloride Flush 3 ML SYRINGE IVFLUSH (08:29)
[2024-05-08] MEDS: Insulin Lispro 100 UNIT/ML 3 ML VIAL SUBCUT ×2 (08:29→12:05)
[2024-05-08] MEDS: Finasteride 5 MG TABLET PO (08:30)
[2024-05-08] MEDS: Multivitamin TABLET 1 TAB PO (08:30)
[2024-05-08] MEDS: Ferrous Sulfate 324 MG TABLET.DR PO (08:30)
--- NOTE | 2024-05-08 10:57 | PM.DS ---
DS: Providers Provider Date of Service: 05/08/24 Date of admission: 05/05/24 11:22 Date of discharge: 05/08/24 Primary care physician: Chase Disla MD Consults: 05/06/24 07:00 Consult to Wound Care Routine Reason for consultation: coccyx wound 05/07/24 07:14 Consult to Infectious Diseases Routine Consulting Provider: [facility] Reason for consultation: gm negative bacteremia/no source Has provider been notified: No DS: Diagnosis Discharge Diagnosis (1) Severe sepsis: Status: Acute DS: Summary Hospital Course Hospital Course: History of presenting illness: Date of Service: 05/05/24 Chief Complaint: Lethargy/hematuria 83-year-old gentleman resident of [facility] facility, with past medical history significant for type 2 diabetes mellitus on insulin, hypothyroidism, hyperlipidemia, essential hypertension, history of urinary retention on chronic Kern catheter was transferred to [facility] today since he was noted to have no urine output in Kern bag , bladder scan showed 1200 mL therefore Kern removed and underwent straight catheterization and was noted to have hematuria, patient was also noted to be lethargic with low-grade temp of 100.9 degrees rectal temperature, at [place] emergency room, patient was answering questions inappropriately, he was noted to have low blood pressure of 75/33, with temp of 101.3 degrees, pulse 97, patient was treated aggressively with IV 30 mL/kg fluids, albumin, midodrine 10 mg x 1, patient responded well and blood pressure improved to 120/60 chest x-ray showed no acute consolidation, urinalysis was positive for 4+ bacteria, greater than 50 WBC, IFTIKHAR, lactic acid 2.1 that improved to 1.5 with IV fluids patient received IV cefepime and IV Levaquin and now being admitted to [facility] with a diagnosis of severe sepsis due to UTI. 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 Severe sepsis likely due to UTI, treated with IV ceftriaxone and IV fluids, patient responded well to above treatment WBC normalized, had no recurrent fever lactic acid normalized, blood cultures 2/2 grew Providencia and E coli sensitive to ceftriaxone, urine culture showed 100,000 mixed bacterial nik, CT abdomen and pelvis showed no acute abnormality, since patient is hemodynamically stable he is being discharged home on Ceftin 500 mg twice daily to finish total 14 day course of antibiotics recommend to change Kern regularly q.4 weeks Acute toxic metabolic encephalopathy due to UTI/sepsis/IFTIKHAR resolved. Elevated troponin likely due to sepsis patient asymptomatic with no acute EKG changes, no further workup warranted. Mild IFTIKHAR resolved status post IV fluids. Urinary retention with chronic Kern catheter, continue Flomax. Diabetes mellitus type 2 continue diabetic diet, insulin sliding scale and Lantus 25 units. Hypothyroidism continue levothyroxine , TSH 1.16. 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 Turn and Reposition every 2 hours and as needed for patient comfort.? Use pillows or wedges to support off loading positions. 2. Off Load all bony prominences with use of pillows and heel boots if needed.? Apply Preventative foams where needed. ? 3. Monitor for incontinence and moisture control, use barrier creams when needed for prevention and treatment. 4. Provide adequate and supplemental nutrition.? 5. Order low air loss mattress. Waffle cushion to recliner chair when up. 6. When applicable maintain blood glucose levels per Providers order. 7. Coccyx - Off Load Pressure with Q2hr turns and pillows. Waffle cushion when up to chair. Cleanse and irrigate with NS, pat dry. Apply barrier cream to periwound, lightly pack wound bed with Durafiber AG to fill space, Cover with foam dressing change every other day. Time Attestation Discharge Coordination Time (in mins): 40 Quality: Safe Use of Opioids Does Pt have an Active Cancer Diagnosis on the Problem List?: No Quality: Stroke Does the patient have a stroke diagnosis?: No Physical Exam Vital Signs: Vital Signs: Last Vital Signs Temp 97.7 F 05/08/24 07:51 Pulse 70 05/08/24 07:51 Resp 18 05/08/24 07:51 BP 111/56 L 05/08/24 07:51 Pulse Ox 95 05/08/24 07:51 O2 Del Method Room Air 05/08/24 07:51 O2 Flow Rate 1 05/06/24 06:00 BMI result Body Mass Index 29.0 Const: Other: General resting comfortably in no acute distress. Moist mucous membrane Neck no JVD. CVS regular rate rhythm, Respiratory lungs clear to auscultation, no respiratory distress, no wheeze, no rhonchi. Gastrointestinal abdomen soft, non tender, bowel sounds audible, no guarding , no rigidity. Extremities no edema. Neuro non focal Skin no rash Psych appropriate affect Kern catheter clear urine DS: Data Data Completed and Pending Labs on day of discharge: Laboratory Results - last 24 hr 05/07/24 05/07/24 05/07/24 11:59 15:55 19:10 POC Glucose 260 H 256 H 244 H 05/08/24 07:23 POC Glucose 207 H Preliminary micro results at discharge 05/05/24 03:59 Blood Culture - Preliminary Blood - Venous Escherichia coli Providencia stuartii Discharge Plan Discharge Anticipated Discharge Date/Time: 05/08/24 10:51 Patient Disposition: Xfer [facility] Discharge Diagnosis: Severe sepsis due to UTI Gram-negative bacteremia Referrals: Chase Disla MD [Primary Care Provider] - 1 Week Discharge Medications: New cefuroxime axetil 500 mg tablet 500 mg PO BID 10 Days Qty: 20 0RF Continued (DME) blood-glucose meter [OneTouch Verio Flex Start] Kit See Rx Instructions .ROUTE .MEDSUPPLY Qty: 1 0RF Rx Instructions: As directed (DME) lancets [OneTouch Delica Lancets] 33 gauge misc See Rx Instructions .ROUTE .MEDSUPPLY Qty: 300 3RF Rx Instructions: As directed three times a day pravastatin 40 mg tablet 40 mg PO BEDTIME 90 Days Qty: 90 1RF (DME) OneTouch Verio test strips Strip See Rx Instructions .ROUTE .MEDSUPPLY Qty: 300 0RF Rx Instructions: As directed three times a day multivitamin Tablet 1 tab PO DAILY acetaminophen 325 mg Tablet 650 mg PO Q6H PRN (Reason: Fever Or Pain) insulin glargine [Lantus U-100 Insulin] 100 unit/mL solution 25 unit subcut BEDTIME loperamide 2 mg Capsule 2 mg PO Q6H PRN (Reason: Diarrhea) dextrose 40 % Gel 20 g PO Q15M PRN (Reason: FSBS <50 and able to swallow) Rx Instructions: until symptoms of low blood sugar are controlled acetaminophen 500 mg Tablet 500 mg PO Q4H PRN (Reason: Pain) levothyroxine 75 mcg tablet 75 mcg PO DAILY@0600 magnesium hydroxide [Milk of Magnesia] 400 mg/5 mL Suspension 30 ml PO DAILY PRN (Reason: no BM for 3 days) tamsulosin 0.4 mg capsule 0.4 mg PO BEDTIME bisacodyl 10 mg Suppository 10 mg UT DAILY PRN (Reason: if no BM for 8 hours after MOM) pantoprazole 40 mg tablet,delayed release (DR/EC) 40 mg PO DAILY Fleet Enema 19-7 gram/118 mL Enema 118 ml UT DAILY PRN (Reason: if no BM for 8 hours after bisacodyl suppository) lactase 3,000 unit Tablet 3,000 unit PO QID PRN (Reason: Lactose Intolerance) Rx Instructions: administer with meals and/or snacks insulin lispro [Humalog U-100 Insulin] 100 unit/mL solution 5 unit subcut TIDAC glucagon 1 mg Recon Soln 1 mg SUBCUT ONCE PRN (Reason: BS below 60 and unable to swallow) Rx Instructions: until target blood sugar attained ferrous sulfate 324 mg (65 mg iron) Tablet,Delayed Release (Dr/Ec) 324 mg PO DAILY (DME) wheel chair regular See Rx Instructions .Route .MEDSUPPLY Qty: 1 0RF Rx Instructions: As directed finasteride 5 mg tablet 5 mg PO DAILY Discharge Orders: Discharge Order (Routine); Ordered 05/08/24 Ordered By: Joelle Lira Diet: Ensure max 330 b.i.d. 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 Turn and Reposition every 2 hours and as needed for patient comfort.? Use pillows or wedges to support off loading positions. 2. Off Load all bony prominences with use of pillows and heel boots if needed.? Apply Preventative foams where needed. ? 3. Monitor for incontinence and moisture control, use barrier creams when needed for prevention and treatment. 4. Provide adequate and supplemental nutrition.? 5. Order low air loss mattress. Waffle cushion to recliner chair when up. 6. When applicable maintain blood glucose levels per Providers order. 7. Coccyx - Off Load Pressure with Q2hr turns and pillows. Waffle cushion when up to chair. Cleanse and irrigate with NS, pat dry. Apply barrier cream to periwound, lightly pack wound bed with Durafiber AG to fill space, Cover with foam dressing change every other day. Health Concerns: As above Plan of Treatment: Outpatient follow-up with primary care physician Assessment: As above
[2024-05-08 11:11] LABS: Glucose, Whole Blood 283 mg/dL (60-115)
--- NOTE | 2024-05-08 11:43 | MHC.CM.PN ---
PT CLEARED TO DC BACK TO LTC AT [facility] TRANSPORT BOOKED WITH LOU FOR 1500 HOURS DAUGHTER, MADHAVI, NOTIFIED VIA T/C [phone]
[2024-05-08 11:47] VITALS: BP 111/53; PULSE 61; RESP 18; TEMP 36.1; O2SAT 96
[2024-05-08] MEDS: cefTRIAXone sodium 2 GM VIAL IVPUSH (12:05)
[2024-05-08 15:32] VITALS: BP 157/71; PULSE 72; RESP 18; TEMP 36.2; O2SAT 97
== END 2024-05-08 15:46 | disposition skilled nursing facility (03) | DRG 871 ==
LOC: HO.ED 07:23 → HO.EDOVER 11:29 → HO.S3 05-06 10:19
PROVIDERS: Emergency Medicine; Admitting Provider Hospitalist; Emergency Provider Emergency Medicine; PCP Internal Medicine; Visit Provider Hospitalist
DX: A41.9 Sepsis, unspecified organism (principal); G92.8 Other toxic encephalopathy; L89.154 Pressure ulcer of sacral region, stage 4; N17.9 Acute kidney failure, unspecified; E11.42 Type 2 diabetes mellitus with diabetic polyneuropathy; R65.20 Severe sepsis without septic shock; R33.9 Retention of urine, unspecified; B96.20 Unspecified Escherichia coli [E. coli] as the cause of diseases classified elsewhere; R31.9 Hematuria, unspecified; E03.9 Hypothyroidism, unspecified; E78.5 Hyperlipidemia, unspecified; Z66 Do not resuscitate; Z20.822 Contact with and (suspected) exposure to COVID-19; Z87.891 Personal history of nicotine dependence; Z79.4 Long term (current) use of insulin; Z79.890 Hormone replacement therapy; Z79.899 Other long term (current) drug therapy
CPT/HCPCS: 0241U; 36415; 71045; 74177; 80048; 80053; 81001; 82947; 83605; 83690; 83735; 84443; 84484; 85025; 85027; 87040; 87077; 87086; 87186; 87205; 93005; 99285; C1758; J0692; J0696; J1956; J7120; P9047; Q9967

== ENCOUNTER → 2024-05-05 03:55 | Outpatient (BNV) | payer MEDICARE, SELFPAY | PROVIDERS: Admitting Provider Hospitalist; Emergency Provider Emergency Medicine; PCP Internal Medicine; Visit Provider Internal Medicine Cardiovascular Disease | DX: I95.9 Hypotension, unspecified (principal) | CPT/HCPCS: 93010 ==

== ENCOUNTER → 2024-05-05 05:11 | Outpatient (BNV) | payer MEDICARE, SELFPAY | PROVIDERS: Emergency Provider Emergency Medicine; PCP Internal Medicine; Visit Provider Radiology Vascular & Interventional Radiology | DX: R50.9 Fever, unspecified (principal) | CPT/HCPCS: 71045 ==

== ENCOUNTER 2024-05-05 11:22 | Outpatient (BNV) | payer MEDICARE, SELFPAY | END 2024-05-07 10:02 | PROVIDERS: Admitting Provider Hospitalist; Emergency Provider Emergency Medicine; PCP Internal Medicine; Visit Provider Radiology Diagnostic Radiology | DX: R78.81 Bacteremia (principal) | CPT/HCPCS: 74177 ==

== ENCOUNTER → 2024-05-05 11:22 | Outpatient (BNV) | payer MEDICARE, SELFPAY | PROVIDERS: Admitting Provider Hospitalist; Emergency Provider Emergency Medicine; PCP Internal Medicine; Visit Provider Hospitalist | DX: A41.9 Sepsis, unspecified organism (principal); R65.20 Severe sepsis without septic shock; N39.0 Urinary tract infection, site not specified | CPT/HCPCS: 99223; 99232; 99239 ==

== ENCOUNTER 2025-04-08 03:45 | Emergency (ER) | payer MEDICARE, MEDICAID, SELFPAY ==
[2025-04-08] VITALS (7 sets, daily range): BP systolic 134–170; BP diastolic 54–93; PULSE 60–84; RESP 12–16; TEMP 35.7–36.8; O2SAT 98–99; BMI 26.9
[2025-04-08 04:11] LABS: Glucose, Whole Blood 93 mg/dL (60-115)
--- NOTE | 2025-04-08 04:11 | ECG_ITS ---
Test Reason : FALL Blood Pressure : */* mmHG Vent. Rate : 75 BPM Atrial Rate : * BPM P-R Int : * ms QRS Dur : 70 ms QT Int : 392 ms P-R-T Axes : * 52 61 degrees QTcB Int : 437 ms NSR with occasional Premature ventricular complexes Septal infarct , age undetermined Abnormal ECG When compared with ECG of 05-May-2024 03:55, Junctional rhythm has replaced Sinus rhythm QRS duration has decreased Septal infarct is now Present Referred By: Generic ED Physician Electronically Signed By: Mayank Metz
--- OUTSIDE RECORDS SUMMARY | 2025-04-08 04:49 | XMS_ITS | Encounter Summary ---
Author Organization [facility] Address [address] [facility] [address] [place] [address] Phone Care Team Providers Care Depositing Machine Operator Name Role Phone Chase Disla MD Primary Care Provider [phone] Encounter Details Date Type Department Care Team (Late st Contact Info) Description 08/31/2023 Procedure Pass [facility] [address] [place] [address] Social History Tobacco Use Types Packs/Day Years Used Date Smoking Tobacco: Former Cigarettes Q uit: 1980 Smokeless Tobacco: Never Alcohol Use Standard Drinks/Week Comments Not Currently 0 (1 standard drink = 0.6 oz pure alcohol) Wine or beer few times per year Education Answer Date Recorded Are you interested in more education? Not on whitney e 08/17/2022 Are you concerned about learning? Not on file 08/17/2022 No 08/17/2022 No 08/17/2022 Digital Access Answer Date Recorded No 09/19/2022 No 09/19/2022 Reliable internet access at home? Not on file 09/19/2022 Device with a working camera? Not on file Intimate Partner Violence Answer Date R ecorded Are you denied basic needs s uch as food, clothing, or medical care? No 08/27/2023 In the past 12 months have y ou been in a relationship with a person who hurts, threatens, or tries to control you? No 08/27/2023 Are you denied basic needs s uch as food, clothing, or medical care? No 08/27/2023 In the past 12 months have y ou been in a relationship with a person who hurts, threatens, or tries to control you? No 08/27/2023 Sex and Gender Information Value Date Recorded Sex Assigned at Male 11/24/2020 10:51 AM EDT Legal Sex Male 3:16 PM EST Gender Identity Male 11/24/2020 10:51 AM EDT Sexual Orientation Straight 11/24/2020 10 :51 AM EDT documented as of this encounter Plan of Treatment Not on file documented as of this encounter Visit Diagnoses Not on filedocumented in this encounter Additional Health Concerns Infection Onset Date Last Indicated Resolved Time CDiff-Risk 09/11/2023 09/11/2023 09/11/2023 12:5 5 PM EDT documented as of this encounter Care Teams Depositing Machine Operator Relationship Specialty Start Date End Date Chase Disla MD [address] [place] [address] PCP - General 11/24/20 documented as of this encounter Additional Source Comments The information contained in this document represents components of the legal health record. It is not the complete legal health record.[facility]
--- OUTSIDE RECORDS SUMMARY | 2025-04-08 04:49 | XMS_ITS | Encounter Summary ---
Author Organization [facility] Address [facility] [employer] [facility] [address] [place] [phone] Phone Care Team Providers Care Forming Machine Upkeep Mechanic Name Role Phone Chase Disla MD Primary Care Provider [phone] Encounter Details Date Type Department Care Team (Late st Contact Info) Description 08/08/2023 Transcribe Orders [facility] Virtual Department [address] [place] [address] Shanae Black MD [address] [place] [id number] [email or web address] Screening for unspecified condition (Primary Dx) Social History Tobacco Use Types Packs/Day Years Used Date Smoking Tobacco: Former Cigarettes Q uit: 1981 Smokeless Tobacco: Never Alcohol Use Standard Drinks/Week [...] with a working camera? Not on file Sex and Gender Information Value Date Recorded Sex Assigned at Male 11/24/2020 10:51 AM EDT Legal Sex Male 3:16 PM EST Gender Identity Male 11/24/2020 10:51 AM EDT Sexual Orientation Straight 11/24/2020 10 :51 AM EDT documented as of this encounter Plan of Treatment Not on file documented as of this encounter Results * Stool culture (08/07/2023 10:30 PM EDT) Special Requests None 08/08/2023 10:11 AM EDT [facility] Stool Culture NO SALMONELLA, SHIGELLA OR CAMPYLOBACTER ISOLATED 08/09/2023 8:00 AM EDT [facility] Stool 08/07/2023 10:3 0 PM EDT 08/08/2023 10:13 AM EDT us Shanae Black MD LAB MICROBIOLOGY CULTURE ORDERABLES Final Result Performing Organization Address [facility] Co de Phone Number [address] [phone] * C. DIFFICILE PCR (08/07/2023 6:30 PM EDT) C.DIFFICILE PCR Negative Negative [facility] C.DIFFICILE STRAIN PRESUMPTIVE NEGATIVE PRESUMPTIVE NEGATIVE [facility] Comment:Detection of 027/NAP 1/BI strains of C.difficile is presumptive and is solely for epidemiological purposes and is not intended to guide or monitor treatment of infections. Stool 08/07/2023 6:30 PM EDT 08/08/2023 10:13 AM EDT us Shanae Black MD LAB BODY FLUIDS AND STOOL ORDERABLES Final Result Performing Organization Address [facility] Co de Phone Number [address] [address] documented in this encounter Visit Diagnoses Diagnosis Screening for unspecified condition- Primary documented in this encounter Additional Health Concerns Infection Onset Date Last Indicated Resolved Time CDiff-Risk 08/07/2023 08/08/2023 08/08/2023 12:4 8 PM EDT CoV-Risk Comment:2 neg covid 08/27/2023 08/27/2023 08/28/2023 5:42 AM E DT CDiff-Risk 08/29/2023 08/29/2023 08/29/2023 7:35 PM EDT CDiff-Risk 09/11/2023 09/11/2023 09/11/2023 12:5 5 PM EDT documented as of this encounter Care Teams Forming Machine Upkeep Mechanic Relationship Specialty Start Date End Date Chase Disla MD [address] [facility] [place] [address] PCP - General 11/24/20 documented as of this encounter Additional Source Comments The information contained in this document represents components of the legal health record. It is not the complete legal health record.[facility]
--- OUTSIDE RECORDS SUMMARY | 2025-04-08 04:49 | XMS_ITS | Encounter Summary ---
Author Organization [facility] Address [facility] [employer] [facility] [address] [place] [phone] Phone Care Team Providers Care Button And Buckle Maker Name Role Phone Chase Disla MD Primary Care Provider [phone] Encounter Details Date Type Department Care Team (Late st Contact Info) Description 07/14/2023 Procedure Pass OR Admitting Dept - Virtual Department [address] [place] [address] Social History Tobacco Use Types Packs/Day Years [...] AM EDT documented as of this encounter Functional Status * Calculated C-SSRS Risk Score (Lifetime/Recent) Answer Date of Assessment Author No Risk Indicated 07/14/2023 4:47 PM EDT John Finnegan RN * [place] Suicide Severity Rating Scale (Screener/Recent Self-Report) Question Answer Date of Assessment Author 1. Wish to be (Past 1 Month) No 024 4:47 PM EDT Shayna Finnegan RN 2. Non-Specific Active Suici leif Thoughts (Past 1 Month) No 07/14/2023 4:47 PM EDT Shayna Finnegan RN 6. Suicidal Behavior (Lifetime) No 4:47 PM EDT Shayna Finnegan RN documented as of this encounter Plan of [...] documented as of this encounter Care Teams Button And Buckle Maker Relationship Specialty Start Date End Date Chase Disla MD [address] [facility] [place] [address] PCP - General 11/24/20 documented as of this encounter Additional Source Comments The information contained in this document represents components of the legal health record. It is not the complete legal health record.[facility]
--- OUTSIDE RECORDS SUMMARY | 2025-04-08 04:49 | XMS_ITS | Encounter Summary ---
Author Organization [facility] Address [address] [employer] [facility] [place] [address] [place] [address] Phone Care Team Providers Care Medical Review Coordinator Name Role Phone Chase Disla MD Primary Care Provider [phone] Encounter Details Date Type Department Care Team (Late st Contact Info) Description 07/14/2023 Procedure Pass [facility], Ct Scan - [address] [address] Social History Tobacco Use Types Packs/Day Years [...] 4:47 PM EDT John Finnegan RN * [place]kinson Suicide Severity Rating Scale (Screener/Recent Self-Report) Question [...] documented as of this encounter Care Teams Medical Review Coordinator Relationship Specialty Start Date End Date Chase Disla MD [facility] [address] PCP - General 11/24/20 documented as of this encounter Additional Source Comments The information contained in this document represents components of the legal health record. It is not the complete legal health record.[facility]
--- OUTSIDE RECORDS SUMMARY | 2025-04-08 04:49 | XMS_ITS | Encounter Summary ---
Author Organization [facility] Address Formerly [facility] [employer] [facility] [address] [place] [address] Phone Care Team Providers Care Film And Video Graphics Designer Name Role Phone Chase Disla MD Primary Care Provider [phone] Encounter Details Date Type Department Care Team (Late st Contact Info) Description 07/19/2023 Procedure Pass [facility], Ct Scan - [address] [address] Social History Tobacco Use Types Packs/Day Years [...] documented as of this encounter Care Teams Film And Video Graphics Designer Relationship Specialty Start Date End Date Chase Disla MD [facility] [place] [address] PCP - General 11/24/20 documented as of this encounter Additional Source Comments The information contained in this document represents components of the legal health record. It is not the complete legal health record.[facility]
--- OUTSIDE RECORDS SUMMARY | 2025-04-08 04:49 | XMS_ITS | Clinical Summary ---
Author Organization [facility] Address [address] [address] Phone Care Team Providers Care Retail Advertising Sales Manager Name Role Phone Chase Disla MD Primary Care Provider [phone] Allergies Active Allergy Reactions Criticality Noted Date Comments Latex 11/24/2020 Medications FINASTERIDE ORAL Take 5 mg by mouth daily. Active pravastatin sodium (PRAVASTATIN ORAL) Take 40 mg by mouth nightly at bedtime. Active levothyroxine sodium (LEVOTHYROXINE ORAL) Take 75 mcg by mouth daily. Active acetaminophen (TYLENOL) 500 MG tablet Take 1 tablet (500 mg total) by mouth every 4 (four) hours as needed for pain (specific location in comments). 60 tablet 1 07/20/2023 Active loperamide (IMODIUM) 2 mg capsule Take 1 capsule (2 mg total) by mouth 4 (four) times a day as needed for diarrhea. 07/28/2023 Active tamsulosin (FLOMAX) 0.4 mg Cap Take 0.4 mg by mouth daily. Active insulin glargine (LANTUS) 100 unit/mL injection vial Inject 25 Units under the skin nightly at bedtime. 09/12/2023 Active insulin lispro (ADMELOG, HUMALOG) 100 unit/mL injection vial Inject 0-6 Units under the skin 4 (four) times a day with meals and nightly. 09/12/2023 Active insulin lispro (ADMELOG, HUMALOG) 100 unit/mL injection vial Inject 7 Units under the skin 3 (three) times a day with meals. 09/12/2023 Active lidocaine 4 % Place 1 patch onto the skin daily. 09/12/2023 Active pantoprazole (PROTONIX) 40 MG tablet Take 1 tablet (40 mg total) by mouth daily. 09/13/2023 Active Saccharomyces boulardii (FLORASTOR) 250 mg capsule Take 1 capsule (250 mg total) by mouth 2 (two) times a day. 09/12/2023 Active Active Problems Problem Noted Date Diagnosed Date Sacral wound 09/10/2023 Assessment & Plan (09/11/2023 3:15 PM EDT): He has an upper and lower sacral wound Dr. James debrided on 08/30/23. Required second debridement on 09/10 and wound VAC was placed. Plan for discharge to SNF tomorrow Hypotension 09/01/2023 Assessment & Plan (09/10/2023 1:05 PM EDT): BP has been on the low side and his RUTHIE and labetalol have been on hold. -- Resume lisinopril +/- labetalol when clinically indicated Pneumoperitoneum 08/28/2023 Assessment & Plan (09/10/2023 1:03 PM EDT): At presentation, patient was 6 weeks post omental patch for perforated peptic ulcer (07/14/[address] Law of General surgery). There had been suspicion for underlying malignancy in the stomach but path was unrevealing. CT abd pelvis on 08/26 showing small free air in the left upper quadrant, a fluid collection adjacent to the posterior left stomach, and a 2 cm fluid collection in the left upper quadrant posterior to the spleen. Dr Law was consulted and recommended a gastrografin test which was performed 08/27, without evidence of extravasation. Discussed with Dr Law 08/28, CT not suggestive of perforation lower than stomach. OK to resume diet on 08/28. He had been reporting some dyspepsia. According to daughter he had been using Pepto-Bismol frequently at home but had not been on a PPI. --Continue to monitor --Protonix started --Continue Maalox as needed -- Diet as tolerated Abdominal fluid collection 08/28/2023 Bacteremia 08/28/2023 Assessment & Plan (09/11/2023 3:17 PM EDT): He presented with sepsis and was admitted to the ICU for blood pressure support. He was found to have polymicrobial bacteremia with an unclear source but suspicion was that it was intra-abdominal versus from the sacral wound. CT abdomen/pelvis showed 2 fluid collections ([id number] hypodensity adjacent to the external left stomach and 2 x 1 x 3 cm collection in the left upper quadrant). Blood culture (08/26 #1) Streptococcus anginosus and Bacteroides fragilis Blood culture (08/26 #2) growing Streptococcus anginosus blood cultures (08/27 x 2) remains negative Urine culture (08/26) growing greater than 100,000 Klebsiella pneumoniae He was being followed by infectious disease and after discussion with ID and general surgery, the decision was made to not proceed with drainage of fluid collections as the risk would outweigh the benefit. He was therefore treated medically and improved with antibiotic therapy. He has completed 14-day course of broad-spectrum antibiotics ultimately being narrowed to ceftriaxone and Flagyl. His last antibiotic day was 09/10/23. -Continue to monitor off of antibiotics while awaiting SNF Urinary tract infection 08/28/2023 Severe sepsis 08/28/2023 Urinary retention 07/24/2023 Assessment & Plan (09/10/2023 1:06 PM EDT): Has had urinary retention on prior admissions, carries diagnosis of BPH. Is followed by urology outpatient, continues on tamsulosin, finasteride. Retaining urine on admission, required Kern placement. Failed void trial on 08/27 and Kern was replaced. -- He has an appointment with urology on September 27. Assessment & Plan (07/29/2023 5:43 PM EDT): Urinary catheter placed on 07/22 for PVR of >800. Has history of BPH followed by Dr. Marcus of urology. Kern catheter was removed however patient has failed voiding trial with PVRs of 800, 600 overnight. Plan-reinstate Kern catheter. Start Flomax 0.4 mg daily Urology follow-up post DC Ileus, postoperative 07/18/2023 Assessment & Plan (07/29/2023 5:44 PM EDT): Resolved. Tolerating diet well Surgery continues to follow Anemia 07/16/2023 Assessment & Plan (07/29/2023 5:45 PM EDT): Stable at 8.1/25.0 Baseline hemoglobin and March of this year was 12.6 Anemia is likely related to blood loss during surgery. Check iron studies BPH (benign prostatic hyperplasia) 07/15/2023 Hypothyroidism 07/15/2023 Assessment & Plan (09/03/2023 3:25 PM EDT): TSH wnl 06/2023. Then shaggy to 28.3 on 08/05 Repeat TSH now 1.75 --Continue levothyroxine as scheduled Assessment & Plan (07/15/2023 9:00 AM EDT): Stable at this time. Will continue home medications but in the form of IV levothyroxine instead of oral. Hypertensive disorder 07/15/2023 Assessment & Plan (07/26/2023 10:04 AM EDT): Initially blood pressure medications were held for septic shock Patient noted to be hypotensive on 07/22, lisinopril and labetalol on hold IVF bolus ordered on 07/22 with subsequent improvement in BP. Restarted lisinopril and labetalol on 07/24 Assessment & Plan (07/15/2023 9:01 AM EDT): Holding patient's blood pressure medications at this time given his ongoing hypotension. Will restart when appropriate. Perforated gastric ulcer 07/14/2023 Assessment & Plan (07/29/2023 5:39 PM EDT): Pt presented with abdominal pain, found to have a perforated gastric ulcer. Now status post exploratory laparotomy with Maninder patch repair. Hypotensive postoperatively, admitted to the ICU and was initiated on pressors. Broad- spectrum antibiotics were initiated given the patient's intra-abdominal contamination. A surgical drain was also placed and output was monitored. Pressors were able to be weaned off on 07/15. Patient was kept n.p.o. with NG tube to suction until he had further evidence of return of bowel function. Patient had several bowel movements and was passing gas by July 19, 2023. Patient underwent a CT scan abdomen pelvis with contrast through the NG tube that showed no evidence of bowel obstruction or contrast extravasation. The NG tube was discontinued and the patient was started on a clear liquid diet. The patient was feeling better and was tolerating clear liquid diet without difficulty. Patient has completed 7 days of antibiotics. Surgical drain removed by surgery on 07/20. Patient was advanced to solid food and TPN was discontinued on 07/21, however patient continued to have bilious vomiting with abdominal distention Patient was made n.p.o., NG tube was placed to suction, a KUB done on 07/22 showing ileus, surgery following Patient started on clear liquid diet on 07/23, tolerating well with N/V improved Advance to full liquid on 07/25, NG tube removed and was subsequently advanced to low fiber regular diet on 07/26. Patient tolerating low fiber diet. TPN discontinued 07/22. Nutrition is following Assessment & Plan (07/15/2023 8:56 AM EDT): Now status post Maninder patch. Appreciate surgical intervention and support. NG tube in place. Patient has been taking Aleve on a daily basis for osteoarthritis for some time. May be a contributing factor. Will continue on Protonix. Continue to follow surgical recommendations regarding diet. Type 2 diabetes mellitus wit h diabetic polyneuropathy, without long-term current use of insulin 01/07/2021 Assessment & Plan (09/11/2023 3:19 PM EDT): Home regimen: metformin 1g BID, glimeperide 1mg BID. P.o. meds have been held. He had hyperglycemia. Started basal/bolus insulin on 08/31 with improved blood sugar control Lantus was increased to 15 units nightly on 09/02. Blood sugar in the 200s today. -- Continue mealtime insulin to 7 units 3 times daily. -- Titrate Lantus to 25 units nightly -- Consistent carbohydrate diet, follow POC Assessment & Plan (07/29/2023 5:41 PM EDT): Glycemic control is good 3 random blood sugar peak at 121. Continue with Lantus, ISS and POC checks Optimize BGM control to encourage wound healing. Goal BS <180. Assessment & Plan (07/15/2023 8:59 AM EDT): Holding home oral antidiabetic medications at this time. Continue with insulin but change from as needed to scheduled. Will change [id number] to every 6 hours as patient is currently NPO. Goal blood sugars are 140-180 or better. Resolved Problems Problem Noted Date Diagnosed Date Resolved Date Septic shock 08/28/2023 08/28/2023 Acute renal failure 07/16/2023 08/28/19 Assessment & Plan (07/29/2023 5:44 PM EDT): Hyponatremia 07/15/2023 08/28/2023 Assessment & Plan (07/29/2023 5:41 PM EDT): Resolved. Sodium 134. Assessment & Plan (07/15/2023 9:00 AM EDT): Likely related to acute illness and pain. Slowly improving with fluid resuscitation. Will check a set of electrolytes at 4 PM today. Septic shock 07/14/2023 08/28/2023 Assessment & Plan (07/29/2023 5:41 PM EDT): Resolved. Was Hypotensive postoperatively, admitted to the ICU. Upon arrival to the ICU, the patient remained hypotensive. A central line was placed. The patient was started on norepinephrine for blood pressure support. Antihypertensive medications were held. Broad-spectrum antibiotics were initiated given the patient's intra-abdominal contamination. A surgical drain was placed during operative intervention to monitor closely during his ICU stay. Pressor requirement downtrended and significantly improved following additional IV fluid boluses (in the setting of significant NGT output) and pressors weaned off on 07/15. On 07/22 patient noted to be hypotensive, IVF ordered and CXR showing persistent opacity, not showing any other signs of infection However surgery recommending antibiotics, will give Zosyn for an additional 3 days Assessment & Plan (07/15/2023 8:57 AM EDT): Patient blood pressure is a bit soft still. On Levophed. Will monitor closely and continue to wean. Holding home blood pressure medications at this time. Immunizations Immunization Administration Dates Next Due INFLUENZA, SPLIT VIRUS, TRIVALENT PF 01/08/2020 INFLUENZA, SPLIT VIRUS, TRIV ALENT W/ PRESERVATIVE IM 11/27/2013,12/24/2012,01/10/2012,2009 Influenza High-Dose Trivalen t Preservative Free IM 01/14/2018,12/06/2016,12/31/2015,2014 Influenza Quadrivalent Adjuv anted Preservative Free IM 01/12/2021 Influenza Trivalent Adjuvant ed Preservative free IM 12/27/2018 Tdap 12/18/2014 Family History Medical History Relation Comments Prostate cancer Brother 1 Heart disease Brother 2 Relation Status Comments Brother 1 Brother 2 Father Mother Sister Alive Social History Tobacco Use Types Packs/Day Years Used Date Smoking Tobacco: Former Cigarettes Q uit: 1981 Smokeless Tobacco: Never Tobacco Cessation:Counseling Given: Not Answered Alcohol Use Standard Drinks/Week Comments Not Currently [...] Orientation Straight 11/24/2020 10 :51 AM EDT Last Filed Vital Signs Vital Sign Reading Time Taken Comments Blood Pressure 122/74 09/12/2023 7:52 AM EDT Pulse 86 09/12/2023 7:52 AM EDT Temperature 36.5 C (97.7 F) 09/12/2023 7:52 AM EDT Respiratory Rate 18 09/12/2023 7:52 AM EDT Oxygen Saturation 99% 09/12/2023 7:52 AM EDT Inhaled Oxygen Concentration - - Weight 73.1 kg (161 lb 2.5 oz) 09/12/2023 6:28 A M EDT Height 175.3 cm (5' 9 ) 08/27/2023 4:44 PM EDT Body Mass Index 23.8 08/27/2023 4:44 PM EDT Plan of Treatment Health Maintenance Due Date Last Done Comments DEPRESSION SCREENING 1952 LIPID PANEL 1958 PNEUMOCOCCAL VACCINES (50+ years) (1 of 2 - PCV) 06/23/1959 ZOSTER VACCINES (1 of 2) 1990 RSV VACCINE (1 - 1-dose 75+ series) 06/23/2015 DIABETIC EYE EXAM 01/07/2021 URINE MICROALBUMIN/CREATININE RATIO 01/07/2021 HEMOGLOBIN A1C 02/02/2024 08/03/2023 BLOOD PRESSURE 02/09/2024 08/10/2023 TSH LEVEL 08/28/2024 08/29/2023, 07/22, 08/03/2023, Additional history exists INFLUENZA VACCINE (#1) 2024 , 01/08/2020, 12/27/2018, Additional history exists Adult Td,Tdap Booster 12/18/2024 12/18/2014 COVID-19 VACCINE ( season) 2024 04/02/2021, 07/28/2020 HEPATITIS A VACCINES Aged Out No long er eligible based on patient's age to complete this topic HIB VACCINES Aged Out No longer eligi ble based on patient's age to complete this topic MENINGOCOCCAL VACCINES (ACWY) Aged Out No longer eligible based on patient's age to complete this topic MENINGOCOCCAL VACCINES (B) Aged Out N o longer eligible based on patient's age to complete this topic Medical Devices Not on file Procedures Procedure Name Priority Date/Time Associated Diagnosis Comments TSH WITH REFLEX Routine 08/29/2023 6:46 AM EDT HEMOGLOBIN A1C Routine 08/03/2023 12:18 PM EDT Hypothyroidism, unspecified type from Last 3 Months or Most Recently Relevant to Health Maintenance Results * TSH with reflex (08/29/2023 6:46 AM EDT) TSH 1.75 0.27 - 4.20 uIU/mL [facility] 08/29/2023 6:46 AM EDT 08/29/2023 7:08 AM EDT Radha Meade PA-C, MPH LAB BLOOD BKR ORDER LUCILLE Final Result Performing Organization Address [facility]/ZIP Co de Phone Number [address] [address] * (ABNORMAL) Hemoglobin A1c (08/03/2023 12:18 PM EDT) HEMOGLOBIN A1C 7.2(H) 4.3 - 5.8 % [facility] 08/03/2023 12:1 8 PM EDT 08/03/2023 2:07 PM EDT us Annmarie SEGURA LAB BLOOD BKR ORDERABLES Final Result Performing Organization Address [facility] Co de Phone Number [address] [address] from Last 3 Months or Most Recently Relevant to Health Maintenance Insurance [facility] MEDICARE REPLACEMENT Demeure [facility] PARTIAL [facility] MEDICARE REPLACEMENT NET PARTIAL AETNA O MEDICARE REPLACEMENT AETNA O MEDICARE REPLACEMENT AETNA O MEDICARE REPLACEMENT HEALTH SAFETY NET PARTIAL AETNA PPO MEDICARE REPLACEMENT AETNA PPO MEDICARE REPLACEMENT HEALTH SAFETY NET PARTIAL AETNA PPO MEDICARE REPLACEMENT Member Subscriber Plan / Payer (Ef fective 2021-) Name:Fermin Valadez Relation to Subscriber:Self Name:Edmundo Valadezyd Payer ID:[id number] (NA) Type:Medicare Address: [address] SAFETY NET PARTIAL AETNA PPO MEDICARE REPLACEMENT [facility] NET PARTIAL Advance Directives For more information, please contact: [phone] (9AM - 5PM [facility], Sunday-Sunday) Documents on File Type Date Recorded Patient Parts Picker Expl anation Healthcare Proxy 09/14/2023 4:10 PM Durable Power of [employer] Investigator 07/23/2023 12:13 PM durable powre of attorney general Healthcare Proxy 07/23/2023 12:13 PM health care proxy MOLST 08/27/2023 MOLST * DNR/DNI (No CPR/No Intubation) (Latest Code Status on File) Date Activated Date Inactivated Comments 08/27/2023 5:42 PM Question Answer Comments Code Status Confirmed With: PatientFamily * Full Code Date Activated Date Inactivated Comments 08/27/2023 3:49 PM 08/27/2023 5:42 PM Question Answer Comments Code Status Confirmed With: Other (specify below ) Code Discussion Comments: per ANASTASIA, to be discu ssed * Full Code Date Activated Date Inactivated Comments 07/14/2023 8:28 PM 08/27/2023 3:49 PM Question Answer Comments Code Status Confirmed With: Patient Healthcare Agents on File Name Relationship Healthcare Agent [facility] Dalia Santoyo Daughter .Primary Health Care Agent (Proxy form on file) Dirk Valadez Son Alternate Health care Agent (Proxy form on file) Care Teams Retail Advertising Sales Manager Relationship Specialty Start Date End Date Chase Disla MD [address] [facility] [address] PCP - General 11/24/20 Additional Source Comments The information contained in this document represents components of the legal health record. It is not the complete legal health record.[facility]
--- OUTSIDE RECORDS SUMMARY | 2025-04-08 04:49 | XMS_ITS | Patient Health Record ---
Author Organization [facility] Address [address] [place] [address] Care Team Providers Care Picker Feeder Name Role Phone Tal SY, [phone] [place] [facility] Pro vider Unavailable García Godfrey Unavailable [phone] Reason For Referral No Information Medications Medication SIG (Take, Route, Frequency, Duration) Notes Start Date End Date Status Metformin & Diet Manage Prod Active Fluvirin Active OneTouch Delica Lancing Dev Active oxyCODONE-Acetaminophen Active Problems Problem Type SNOMED Code ICD Code Onset Dates Problem Status W/U Status Risk Notes Problem Onychomycosis (412620298) Onychomycosis (110.1) Active confirmed Problem Pain in limb (37479788) Pain in Limb (729.5) Active confirmed Problem Ingrowing nail (209080885) Ingrowing Nail (703.0) Active confirmed Problem Neurologic disorder associated with type II diabetes mellitus (342334215) Diabetic - NIDDM/Neuropathy (250.60) Active confirmed Plan Of Treatment Pending Test Test Name Order Date [id number] NAIL, 6 OR MORE 07/24/2012 [id number] Plate 07/24/2012 [id number] SKIN LESIONS, 2 TO 4 07/25/19 13 Insurance Providers Payer Name Payer Address Payer Phone Subscriber Number Group Number Insured Name Patient Relationship to Insured Coverage Start Date Coverage End Date [facility] Medicare Complete [address] [address] [place] [address] [id number] SHELLIE BERMUDEZ Self - patient is the insured Medical (General) History Medical History History ICD Code cancer gall bladder problems heart disease measles chicken pox diabetic Surgical History Surgery Date(Month/Year) gall bladder 05/2012 ear surgery 01/1993
--- OUTSIDE RECORDS SUMMARY | 2025-04-08 04:49 | XMS_ITS | Encounter Summary ---
Author Organization [facility] Address [address] [employer] [facility] [address] [place] [address] Phone Care Team Providers Care Skin Therapist Name Role Phone Chase Disla MD Primary Care Provider [phone] Encounter Details Date Type Department Care Team (Late st Contact Info) Description 08/27/2023 Procedure Pass [facility], Ct Scan - [address] [address] Social History Tobacco Use Types Packs/Day Years [...] Date of Assessment Author No Risk Indicated 08/27/2023 11:36 AM EDT Ngoc Zheng RN * [place]urt Suicide Severity Rating Scale (Screener/Recent Self-Report) Question Answer Date of Assessment Author 1. Wish to be (Past 1 Month) No 08/27/2023 11:36 AM EDT Ngoc Zheng ea, RN 2. Non-Specific Active Suici leif Thoughts (Past 1 Month) No 08/27/2023 11:36 AM EDT Ngoc Zheng RN 6. Suicidal Behavior (Lifetime) No 11:36 AM EDT Ngoc Zheng RN documented as of this encounter Plan of Treatment Not on file documented as of this encounter Visit Diagnoses Not on filedocumented in this encounter Additional Health Concerns Infection Onset Date Last Indicated Resolved Time CoV-Risk Comment:2 neg covid 08/27/2023 08/27/2023 08/28/2023 5:42 AM E DT CDiff-Risk 08/29/2023 08/29/2023 08/29/2023 7:35 PM EDT CDiff-Risk 09/11/2023 09/11/2023 09/11/2023 12:5 5 PM EDT documented as of this encounter Care Teams Skin Therapist Relationship Specialty Start Date End Date Chase Disla MD [address] [place] [address] PCP - General 11/24/20 documented as of this encounter Additional Source Comments The information contained in this document represents components of the legal health record. It is not the complete legal health record.[facility]
--- OUTSIDE RECORDS SUMMARY | 2025-04-08 04:49 | XMS_ITS | Encounter Summary ---
Author Organization [facility] Address [address] [place] [address] [place] [address] Phone Care Team Providers Care Transportation Services Representative Name Role Phone Chase Disla MD Primary Care Provider [phone] Encounter Details Date Type Department Care Team (Late st Contact Info) Description 07/15/2023 Procedure Pass [facility] [address] [place] [address] Social History Tobacco Use Types Packs/Day Years [...] documented as of this encounter Care Teams Transportation Services Representative Relationship Specialty Start Date End Date Chase Disla MD [facility] [place] [address] PCP - General 11/24/20 documented as of this encounter Additional Source Comments The information contained in this document represents components of the legal health record. It is not the complete legal health record.[facility]
--- OUTSIDE RECORDS SUMMARY | 2025-04-08 04:49 | XMS_ITS | Encounter Summary ---
Author Organization [facility] Address [address] [facility] [address] [place] [phone] Phone Care Team Providers Care Stone Processing Machine Operator Name Role Phone Chase Disla MD Primary Care Provider [phone] Encounter Details Date Type Department Care Team (Late st Contact Info) Description 11/26/2020 Transcribe Orders [address] [place] [address] Chase Disla MD [address] [place] [address] [place] [address] Hyponatremia (Primary Dx) Social History Tobacco Use Types Packs/Day Years Used Date Smoking Tobacco: Never Assessed Sex and Gender Information Value Date Recorded Sex Assigned at Male 11/24/2020 10:51 AM EDT Legal Sex Male 3:16 PM EST Gender Identity Male 11/24/2020 10:51 AM EDT Sexual Orientation Straight 11/24/2020 10 :51 AM EDT documented as of this encounter Plan of Treatment Not on file documented as of this encounter Results * (ABNORMAL) Basic metabolic panel (11/26/2020 3:15 PM EDT) SODIUM 127(L) 133 - 146 mmol/L [facility] CHLORIDE 90(L) 96 - 108 mmol/L [facility] POTASSIUM 5.1 3.3 - 5.1 mmol/L [facility] CO2 26 21 - 35 mmol/L [facility] BUN 18 6 - 19 mg/dL [facility] CREATININE 0.60 0.5 - 1.5 mg/dL [facility] GLUCOSE 143(H) 70 - 99 mg/dL [facility] CALCIUM 10.0 8.4 - 10.3 mg/dL [facility] EGFR 95 >59 mL/min/1.7 3m2 [facility] Comment:Estimated glomerular filtration rate calculated using the CKD-EPI equation. ANION GAP 16 10 - 20 mmol/L [facility] Blood 11/26/2020 3:15 PM EDT 11/26/2020 3:55 PM EDT us Chase Disla MD LAB BLOOD BKR ORDERABLES Final R esult [facility] [address] [place] [address] documented in this encounter Visit Diagnoses Diagnosis Hyponatremia- Primary Hyposmolality and/or hyponatremia documented in this encounter Additional Health Concerns Infection Onset Date Last Indicated Resolved Time CDiff-Risk 08/07/2023 08/08/2023 08/08/2023 12:4 8 PM EDT CoV-Risk Comment:2 neg covid 08/27/2023 08/27/2023 08/28/2023 5:42 AM E DT CDiff-Risk 08/29/2023 08/29/2023 08/29/2023 7:35 PM EDT CDiff-Risk 09/11/2023 09/11/2023 09/11/2023 12:5 5 PM EDT documented as of this encounter Care Teams Stone Processing Machine Operator Relationship Specialty Start Date End Date Chase Disla MD [address] [facility] [place] [address] PCP - General 11/24/20 documented as of this encounter Additional Source Comments The information contained in this document represents components of the legal health record. It is not the complete legal health record.[facility]
--- OUTSIDE RECORDS SUMMARY | 2025-04-08 04:49 | XMS_ITS | Patient Health Record ---
Author Organization [facility] Address [address] [place] [address] Care Team Providers Care Tunnel Elastic Operator Lockstitch Name Role Phone Aditya Parada M.D. Primary Care Provider Joanne leoronanLouis Welsh [phone] Allergies Allergen (clinical drug ingredient) Drug/Non Drug Allergy documented on EMR Reaction Allergy Type Onset Date Status Latex Gloves Unknown Drug Allergy Acti ve Reason For Referral No Information Medications Medication SIG (Take, Route, Frequency, Duration) Notes Start Date End Date Status Labetalol HCl 100 MG Tablet 1 Orally QD Active metFORMIN HCl 1000 MG Tablet 1 tablet wi th meals Orally Once a day Active Pravastatin Sodium 40 MG Tablet 1 tablet Orally Once a day Active Levothyroxine Sodium 50 MCG Tablet 1 tablet on an empty stomach in the morning Orally Once a day Active amLODIPine Besylate 2.5 MG Tablet 1 tablet Orally Once a day Active Social History Social History Additional Details Category Social Info Options Details Miscellaneous: Marital status: Occupation: retired Section Notes: Nonsmoker; no sig alcohol Problems Problem Type SNOMED Code ICD Code Onset Dates Problem Status W/U Status Risk Notes Problem Screening for malignant neoplasm of colon (722851939) Encounter for screening for malignant neoplasm of colon (Z12.11) Active confirmed Problem History of adenomatous polyp of colon (293728345) History of adenomatous polyp of colon (Z86.010) Active confirmed Problem Screening for malignant neoplasm of rectum (707298019) Encounter for screening for malignant neoplasm of rectum (Z12.12) Active confirmed Problem Preprocedural examination (412865563481392) Preprocedural examination (Z01.818) Active confirmed Plan Of Treatment Pending Test Test Name Order Date GI BIOPSY 07/18/2016 Future Test Test Name Order Date COLONOSCOPY 04/12/2016 Insurance Providers Payer Name Payer Address Payer Phone Subscriber Number Group Number Insured Name Patient Relationship to Insured Coverage Start Date Coverage End Date [employer] MEDI COMP (REFERR AL REQUIRE D) [address] [address] [place] [address] [phone] [id number] SHELLIE BERMUDEZ Self - patient is the insured Medical (General) History Medical History History ICD Code Screening colonoscopy 06-27-19 07--1 small tubular adenoma, diverticulosis, internal hemorrhoids Hypertension NIDDM Denies SD,CVA,Lung disease,renal disease Hyperlipidemia Hypothyroidism Surgical History Surgery Date(Month/Year) ear and nose surgery for skin cancer surgery for a perirectal abscess cholecystectomy
--- NOTE | 2025-04-08 05:13 | PC.NURSE ---
Addendum entered by Liana Nunez RN 04/08/25 05:55: pts rectal temp 96.3, placed warm blankets on pt, MD aware. Original Note: While changing pts brief and sheets with EDT, noted pt to have unstageable pressure wound to sacral area. Dirty dressing from PVR dated 04/05 was removed and applied pink fom dressing. Pt denies any pain or symptoms of concern.
--- NOTE | 2025-04-08 06:28 | ED_ITS ---
HPI - General Adult General Chief complaint: General Medical Stated complaint: hypoglycemia, fall,emelyn Time Seen by Provider: 04/08/25 05:59 Source: patient and EMS Mode of arrival: EMS Limitations: no limitations History of Present Illness ED Provider: Beltran Hanna PA-C HPI narrative: 84 yo male with history of DM2 on insulin, hypothyroidism, HLD, HTN, hx chronic Kern with hx UTI/bacteremia who presents to the ER from [facility] for evaluation of hypoglycemia and bradycardia. patient reports his glucose was 39 when staff checked it in the middle of the night at his facility. He reportedly had heart rates in the 30s and 40s for staff there as well. EMS was called. On EMS arrival patient's glucose was noted to be 110 with heart rates in the 60s. He is brought to the ER for further evaluation. He states he has no physical symptoms. He denies any recent changes in his medications including his insulin. He has been eating and drinking normally. He states whe n his sugar was 39 he did feel weird but could not elaborate. He is asymptomatic on arrival. MD complaint: Low blood sugar and bradycardia Onset (ago): minute(s) Relieving factors: none Exacerbating factors: none Associated symptoms: denies other symptoms Related Data Home Medications ?Medication ?Instructions ?Recorded ?Confirmed finasteride 5 mg tablet 5 mg PO DAILY 02/05/2004/08 acetaminophen 325 mg tablet 650 mg PO Q6H PRN Fever Or Pain 05/05/24 04/08/25 bisacodyl 10 mg rectal suppository 10 mg AK DAILY PRN if no BM for 8 05/05/24 04/08/25 hours after MOM dextrose 40 % oral gel 20 g PO Q15M PRN FSBS <50 an d able 05/05/24 04/08/25 to swallow ferrous sulfate 324 mg (65 mg 324 mg PO DAILY 05/05/24 04/08/25 iron) tablet,delayed release glucagon 1 mg solution for 1 mg subcut ONCE PRN BS bel ow 60 05/05/24 04/08/25 injection and unable to swallow insulin glargine 100 unit/mL 30 unit subcut BEDTIME 04/08/25 subcutaneous solution (Lantus U-100 Insulin) insulin lispro 100 unit/mL 5 unit subcut TIDAC 5 04/08/25 subcutaneous solution (Humalog U-100 Insulin) lactase 3,000 unit tablet 9,000 unit PO TIDWM 05/05/24 04/08/25 levothyroxine 75 mcg tablet 75 mcg PO DAILY@0600 05/0504/08/25 loperamide 2 mg capsule 2 mg PO Q6H PRN Diarrhea 04/08/25 magnesium hydroxide 400 mg/5 mL 30 ml PO DAILY PRN no BM for 3 days 05/05/24 04/08/25 oral suspension (Milk of Magnesia) multivitamin 1 tab PO DAILY 05/05/2403/23 pantoprazole 40 mg tablet,delayed 40 mg PO DAILY@0630 05/05/24 04/08/25 release sodium phosphates 19 gram-7 118 ml AK DAILY PRN if no BM for 8 05/05/24 04/08/25 gram/118 mL enema (Fleet Enema) hours after bisacodyl suppository tamsulosin 0.4 mg capsule 0.4 mg PO BEDTIME 05/05/24 1 06/09/24 menthol 5 % topical patch (Icy Hot 1 patch topical EMERALD LY 04/08/25 04/08/25 (menthol)) miconazole nitrate 2 % topical 1 appl topical DAILY 04/08/25 cream Previous Rx's ?Medication ?Instructions ?Recorded blood-glucose meter (OneTouch #1 ea 02/16/20 Verio Flex Start kit) lancets 33 gauge (OneTouch Delica #300 ea 02/16/20 Lancets) wheel chair #1 ea 06/16/22 pravastatin 40 mg tablet 40 mg PO BEDTIME 90 days #90 tabs 06/22/23 blood sugar diagnostic (OneTouch #300 ea 07/05/23 Verio test strips) Allergies Allergy/AdvReac Type Severity Reaction Status Date / Time bandages/plastic Allergy Intermediate rash Uncoded 04/08/25 04:01 TAPE,PLASTIC Allergy Intermediate RASH Uncoded 04/08/25 04:01 Review of Systems Review of Systems: Yes all other systems are reviewed and are negative PMFSH Past Medical History Medical History Lipid disorder Other specified hypothyroidism Carotid bruit Actinic keratosis Hypothyroidism Basal cell carcinoma Hyponatremia Anemia Polyuria Hyperlipidemia LDL goal <100 Essential hypertension Type 2 diabetes mellitus with polyneuropathy Surgical History Hx of tooth extraction Hx of basal cell carcinoma Hx of cataract Hx of cholecystectomy Hx of colonoscopy Family History Family History Father No problems noted. Mother Diabetes Obesities, morbid Paternal Grandmother Diabetes Social History Social History Household Members: None Housing: Apartment Patient Tobacco Use Status: Former Tobacco user e-Cigarette/Vaping Use: Never Used Advance Directives: Yes Advance Directives on File: Yes Advance Directives Date on File: 06/16/22 service: No Current occupational status: retired Cognitive needs: No Hearing needs: No Vision needs: Yes Physical Exam ED Exam Exam: Appearance: Alert elderly male lying in bed on his side. Oriented X3. No acute distress. Head: normocephalic, atraumatic. Eyes: Pupils equal, round and reactive to light. ENT: Pharynx normal. No tonsillar swelling or exudate. Neck: Normal inspection. Neck supple. CVS: Normal heart rate and rhythm. Pulses normal. Respiratory: No respiratory distress. Breath sounds normal. Abdomen: Soft and nontender. +BS x4 Skin: Skin warm and dry. Normal skin color. Normal skin turgor. No rashes. Extremities: No lower extremity edema. No joint swelling. Neuro/psych: Oriented X 3. moving all extremities, grossly nonfocal Vital Signs: Vital Signs - 24 hr 04/08/25 03:56 04/08/25 05:43 04/08/25 07:02 Temperature 98.3 F 96.3 F L 97 F Pulse Rate 68 75 Respiratory Rate 13 12 Blood Pressure 134/54 L Pulse Oximetry 98 98 Oxygen Delivery Method Room Air Room Air 04/08/25 07:32 04/08/25 10:09 04/08/25 12:43 Temperature 97.7 F 97.3 F Pulse Rate 84 83 73 Respiratory Rate 16 13 14 Blood Pressure 167/82 H 170/93 H 159/74 H Pulse Oximetry 98 98 98 Oxygen Delivery Method Room Air Room Air Room Air BMI result Body Mass Index 26.9 Medical Decision Making Medical Decision Making [facility] Narrative: 84 yo male with history of DM2 on insulin, hypothyroidism, HLD, HTN, hx chronic Kern with hx UTI/bacteremia who presents to the ER from [facility] for evaluation of hypoglycemia and bradycardia. both issues resolved on arrival to the ER. Glucose is normal. He is eating. He is asymptomatic. Heart rates remained in the 60s on telemetry lab workup reveals stable anemia, glucose is 147 on repeat. EKG is unremarkable. He has never been bradycardic here. He continues to feel well. Patient was monitored in the ER for several hours with no evidence of recurrent hypoglycemia or bradycardia. At this time comfortable discharge back to the facility, he may have had what is known as a Somogyi effect, now resolved. stable for d/c back to [facility] Differential Diagnosis Differential Diagnoses: The differential diagnosis associated with the presentation includes error in POC, Somogyi effect, adrenal insufficiency, excess exogenous insulin, bradycardia, heart block Lab Data [facility] Lab Attestation statement: I reviewed the patient's lab results. Labs: Lab Results 04/08/25 04/08/25 Range/Units 03:51 06:32 POC Glucose 93 147 H (60-115) mg/dL Independent Interpretation I performed an independent interpretation of an: EKG Interpretation: EKG with artifact present, likely sinus, HR 75, PVC present, no ST segment elevation or depression Independent Historian Clinical information obtained from an independent historian. History obtained from or confirmed by: EMS External Record Review External record reviewed: Outpatient record, Prior outpatient labs and Prior outpatient radiology Prescription Management I considered prescription management with: Other (dextrose) Chronic Conditions Patient?s care impacted by: Diabetes and Hypertension Critical Care Time Critical Care Time Critical Care Time: No Discharge Plan Discharge Clinical Impression: Hypoglycemia Patient Disposition: [facility] Transfer Details: BACK TO [facility] Instructions: Hypoglycemia in a Person with Diabetes (DC) Additional Instructions: glucose was normal here when checked several times heart rates were normal here, you were monitored on telemetry for several hours your lab workup was reassuring recommend monitoring your glucose at bedtime and before meals follow up with your doctor If you develop new or worsening symptoms call 911 or come back to the ER for further evaluation. Prescriptions: No Action (DME) blood-glucose meter [OneTouch Verio Flex Start] Kit See Rx Instructions .ROUTE .MEDSUPPLY Qty: 1 0RF Rx Instructions: As directed (DME) lancets [OneTouch Delica Lancets] 33 gauge misc See Rx Instructions .ROUTE .MEDSUPPLY Qty: 300 3RF Rx Instructions: As directed three times a day pravastatin 40 mg tablet 40 mg PO BEDTIME 90 Days Qty: 90 1RF (DME) OneTouch Verio test strips Strip See Rx Instructions .ROUTE .MEDSUPPLY Qty: 300 0RF Rx Instructions: As directed three times a day miconazole nitrate 2 % Cream 1 appl TOPICAL DAILY Rx Instructions: APPLY TO JACOB-WOUND ON BUTTOCKS WITH DRESSING CHANGES menthol [Icy Hot (menthol)] 5 % Adhesive Patch,Medicated 1 patch TOPICAL DAILY Rx Instructions: APPLY TO LEFT FRONT SHOULDER multivitamin Tablet 1 tab PO DAILY acetaminophen 325 mg Tablet 650 mg PO Q6H PRN (Reason: Fever Or Pain) insulin glargine [Lantus U-100 Insulin] 100 unit/mL solution 30 unit subcut BEDTIME loperamide 2 mg Capsule 2 mg PO Q6H PRN (Reason: Diarrhea) dextrose 40 % Gel 20 g PO Q15M PRN (Reason: FSBS <50 and able to swallow) Rx Instructions: until symptoms of low blood sugar are controlled levothyroxine 75 mcg tablet 75 mcg PO DAILY@0600 magnesium hydroxide [Milk of Magnesia] 400 mg/5 mL Suspension 30 ml PO DAILY PRN (Reason: no BM for 3 days) tamsulosin 0.4 mg capsule 0.4 mg PO BEDTIME bisacodyl 10 mg Suppository 10 mg AK DAILY PRN (Reason: if no BM for 8 hours after MOM) pantoprazole 40 mg tablet,delayed release (DR/EC) 40 mg PO DAILY@0630 Fleet Enema 19-7 gram/118 mL Enema 118 ml AK DAILY PRN (Reason: if no BM for 8 hours after bisacodyl suppository) lactase 3,000 unit Tablet 9,000 unit PO TIDWM Rx Instructions: administer with meals and/or snacks insulin lispro [Humalog U-100 Insulin] 100 unit/mL solution 5 unit subcut TIDAC glucagon 1 mg Recon Soln 1 mg SUBCUT ONCE PRN (Reason: BS below 60 and unable to swallow) Rx Instructions: until target blood sugar attained ferrous sulfate 324 mg (65 mg iron) Tablet,Delayed Release (Dr/Ec) 324 mg PO DAILY (DME) wheel chair regular See Rx Instructions .Route .MEDSUPPLY Qty: 1 0RF Rx Instructions: As directed finasteride 5 mg tablet 5 mg PO DAILY Referrals: Nancy Schmitz MD [Physician, Medical] Chase Disla MD [Primary Care Provider, Internal Medicine] Print Language: Kinyarwanda
[2025-04-08 06:37] LABS: Glucose, Whole Blood 147 mg/dL (60-115)
--- NOTE | 2025-04-08 11:09 | PC.NURSE ---
Pt A&O X4 VSS NAD No complaints- aware of plan for DC to [facility] this afternoon- spoke with daughter by phone and she is also aware.
--- NOTE | 2025-04-08 11:16 | PC.NURSE ---
Pt with F/C on admit, draining large amounts clr yellow urine
--- NOTE | 2025-04-08 11:26 | PHA.MEDREC ---
Pharmacy Consult ? Medication Reconciliation Pharmacy has completed the medication reconciliation, USING LIST FROM [facility] IN [place].
--- NOTE | 2025-04-08 13:26 | PC.NURSE ---
Report given to Gayla at rehab
== END 2025-04-08 13:17 | disposition skilled nursing facility (03) ==
PROVIDERS: Emergency Provider Emergency Medicine Emergency Medical Services; PCP Internal Medicine
DX: E11.649 Type 2 diabetes mellitus with hypoglycemia without coma (principal); I10 Essential (primary) hypertension; E78.5 Hyperlipidemia, unspecified; Z79.4 Long term (current) use of insulin; Z87.891 Personal history of nicotine dependence; I49.3 Ventricular premature depolarization; Z91.81 History of falling
CPT/HCPCS: 82947; 93005; 99283; 99284

== ENCOUNTER → 2025-04-08 04:11 | Outpatient (BNV) | payer MEDICARE, MEDICAID, SELFPAY | PROVIDERS: Emergency Provider Emergency Medicine Emergency Medical Services; PCP Internal Medicine; Visit Provider Internal Medicine Cardiovascular Disease | DX: R94.31 Abnormal electrocardiogram [ECG] [EKG] (principal); R00.1 Bradycardia, unspecified | CPT/HCPCS: 93010 ==